=== PATIENT | male | born 1945 | race African-American/Black ===

== ENCOUNTER 2017-06-18 20:33 | Inpatient (IN) | payer MEDICARE, MEDICAID ==
[~2017-06-18] VITALS: Ht 175.3 cm; Wt 103.9 kg
[~2017-06-18 20:33] MED LIST: APIX5TAB PO; ASPI-1158 PO; ATOR40TA70 PO; AZIT500T5 PO; COR12 PO; DILT180C69 PO; Digoxin PO; Docusate Sodium PO; FURO80TA87 PO; LEVVL SUBCUT; PANT40TA4 PO; PULM50 HHN
[2017-06-18 21:20] LABS: BASOPHILS % 0.6 % (0.0-2.0); EOSINOPHILS % 2.1 % (0.0-5.0); HEMATOCRIT. 36.8 % (42.0-52.0); HEMOGLOBIN. 11.7 g/dL (14.0-18.0); LYMPHOCYTES % 19.1 % (20.0-50.0); MEAN CORPUSCULAR HEMOGLOBIN 25.7 pg (28.0-32.0); MEAN CORPUSCULAR VOLUME 81.1 fL (80.0-94.0); MEAN PLATELET VOLUME 9.2 fl (7.4-10.4); MONOCYTES % 7.2 % (2.0-8.0); PLATELET 186 x1000/uL (130-400); RED BLOOD CELL COUNT 4.54 mill/uL (4.7-6.1); RED CELL DISTRIBUTION WIDTH 15.5 % (11.6-14.6)
[2017-06-18 21:25] LABS: INR 1.1; PROTHROMBIN TIME 11.6 sec (9.4-11.6)
[2017-06-18 21:30] LABS: CHLORIDE 104 mEq/L (98-107)
[2017-06-18] MEDS ORDERED: ACETAMINOPHEN WITH CODEINE 300/30MG TABLET PO ONE (23:00)
[2017-06-18] MEDS ORDERED: NITROGLYCERIN 0.4MG/HR PATCH TOP ONE (23:30)
[2017-06-18] MEDS ORDERED: DILTIAZEM HCL 180MG CAPSULE CD 24HR PO ONE (23:30)
[2017-06-19] VITALS (7 sets, daily range): BP systolic 146–179; BP diastolic 71–124
[2017-06-19] MEDS ORDERED: LABETALOL HCL 20MG/4ML CARPUJECT IV PRN
[2017-06-19] MEDS ORDERED: LABETALOL 5MG/ML SYR 20 MG/4 ML SYRINGE IV PRN (00:15)
[2017-06-19] MEDS ORDERED: IPRATROPIUM/ALBUTEROL 0.5-3(2.5)MG/3ML NEB INH PRN (00:45)
[2017-06-19] MEDS ORDERED: MAGNESIUM/ALUMINUM HYDROXIDE/SIMETHICONE 30ML UDC PO PRN (00:45)
[2017-06-19] MEDS ORDERED: CLONIDINE 0.1MG TABLET PO PRN (00:45)
[2017-06-19] MEDS ORDERED: DOCUSATE SODIUM 100MG CAPSULE PO PRN (00:45)
[2017-06-19] MEDS ORDERED: ONDANSETRON HCL 4MG/2ML VIAL IV PRN (00:45)
[2017-06-19 01:22] LABS: CHLORIDE 103 mEq/L (98-107)
[2017-06-19 05:59] LABS: BASOPHILS % 0.9 % (0.0-2.0); EOSINOPHILS % 1.1 % (0.0-5.0); HEMATOCRIT. 37.5 % (42.0-52.0); HEMOGLOBIN. 12.3 g/dL (14.0-18.0); LYMPHOCYTES % 26.3 % (20.0-50.0); MEAN CORPUSCULAR HEMOGLOBIN 26.5 pg (28.0-32.0); MEAN CORPUSCULAR VOLUME 80.6 fL (80.0-94.0); MEAN PLATELET VOLUME 9.4 fl (7.4-10.4); MONOCYTES % 6.5 % (2.0-8.0); NEUTROPHILS % 65.2 % (40.0-76.0); PLATELET 179 x1000/uL (130-400); RED BLOOD CELL COUNT 4.65 mill/uL (4.7-6.1); RED CELL DISTRIBUTION WIDTH 16.1 % (11.6-14.6)
[2017-06-19 06:25] LABS: CREATINE KINASE MB FRACTION 3.3 ng/mL (0.5-3.6)
[2017-06-19] MEDS ORDERED: ONDANSETRON 4MG ODT PO PRN (09:00)
[2017-06-19] MEDS: FUROSEMIDE 40MG/4ML VIAL IV SCH ×2 (10:09→17:25)
[2017-06-19] MEDS ORDERED: ATOR20TA PO (10:27)
[2017-06-19] MEDS ORDERED: DILT60TA35 PO (10:28)
[2017-06-19] MEDS ORDERED: DILTIAZEM HCL 60MG TABLET PO SCH (10:30)
[2017-06-19] MEDS ORDERED: DEXTROSE 50% WATER 50ML SYRINGE IV PRN (10:45)
[2017-06-19] MEDS: PANTOPRAZOLE 40MG DR TABLET PO SCH (10:46)
[2017-06-19] MEDS ORDERED: LOSARTAN POTASSIUM 100 MG TABLET PO SCH (11:30)
[2017-06-19] MEDS: INSULIN GLARGINE UD 100 UNITS/ML SYR SUBCUT SCH ×2 (12:12→21:15)
[2017-06-19] MEDS: BLOOD SUGAR DIAGNOSTIC STRIP TEST SCH ×3 (12:12→21:07)
[2017-06-19] MEDS: INSULIN LISPRO 100 UNITS/ML SUBCUT SCH ×3 (12:16→21:15)
[2017-06-19] MEDS: NICOTINE 21MG PATCH TD SCH (13:54)
[2017-06-19 14:16] LABS: *AMPHETAMINES SCREEN URINE NEGATIVE (NEGATIVE); *BARBITURATES SCREEN URINE NEGATIVE (NEGATIVE); *BENZODIAZEPINES SCREEN URINE NEGATIVE (NEGATIVE); *COCAINE SCREEN URINE NEGATIVE (NEGATIVE); CANNABINOID URINE SCREEN NEGATIVE (NEGATIVE); METHADONE URINE SCREEN NEGATIVE (NEGATIVE); OPIATES URINE SCREEN PRESUMTIVE POSITIVE (NEGATIVE); PHENCYCLIDINE URINE SCREEN NEGATIVE (NEGATIVE)
[2017-06-19] MEDS: HYDROCODONE/ACETAMINOPHEN 5/325MG TABLET PO PRN ×2 (17:21→21:17)
[2017-06-19 17:22] LABS: CREATINE KINASE MB FRACTION 2.6 ng/mL (0.5-3.6)
[2017-06-19] MEDS: APIXABAN 5 MG TABLET PO SCH (17:25)
[2017-06-19] MEDS: DILTIAZEM HCL 60MG TABLET PO SCH ×2 (17:25→23:50)
[2017-06-19] MEDS: DIGOXIN 125MCG TABLET PO SCH (17:25)
[2017-06-19] MEDS ORDERED: DIGOXIN PO SCH (18:00)
[2017-06-19] MEDS: CARVEDILOL 25MG TABLET PO SCH (21:16)
[2017-06-19] MEDS: ATORVASTATIN CALCIUM 20MG TABLET PO SCH (21:16)
[2017-06-19] MEDS ORDERED: INSULIN DETEMIR 15 UNIT SUBCUT SCH (22:00)
[2017-06-20] VITALS (12 sets, daily range): BP systolic 109–160; BP diastolic 57–92
[2017-06-20] MEDS: BLOOD SUGAR DIAGNOSTIC STRIP TEST SCH ×4 (06:34→20:47)
[2017-06-20] MEDS: PANTOPRAZOLE 40MG DR TABLET PO SCH (06:41)
[2017-06-20] MEDS: FUROSEMIDE 40MG/4ML VIAL IV SCH ×2 (06:41→18:19)
[2017-06-20] MEDS: INSULIN LISPRO 100 UNITS/ML SUBCUT SCH ×4 (08:00→20:39)
[2017-06-20] MEDS: APIXABAN 5 MG TABLET PO SCH ×2 (09:00→18:20)
[2017-06-20] MEDS: NICOTINE 21MG PATCH TD SCH (09:00)
[2017-06-20] MEDS: DILTIAZEM HCL 60MG TABLET PO SCH ×3 (09:01→18:20)
[2017-06-20] MEDS: ASPIRIN 81MG EC TABLET PO SCH (09:01)
[2017-06-20] MEDS: CARVEDILOL 25MG TABLET PO SCH ×2 (09:01→20:20)
[2017-06-20] MEDS: LOSARTAN POTASSIUM 50 MG TABLET PO SCH (09:01)
[2017-06-20] MEDS: ACETAMINOPHEN 325MG TABLET PO PRN ×2 (09:02→18:19)
[2017-06-20] MEDS: INSULIN GLARGINE UD 100 UNITS/ML SYR SUBCUT SCH ×2 (10:11→21:22)
[2017-06-20] MEDS: DIGOXIN 125MCG TABLET PO SCH (18:20)
[2017-06-20] MEDS: ATORVASTATIN CALCIUM 20MG TABLET PO SCH (20:10)
[2017-06-21] VITALS (11 sets, daily range): BP systolic 125–164; BP diastolic 65–115
[2017-06-21] MEDS: HYDROCODONE/ACETAMINOPHEN 5/325MG TABLET PO PRN ×4 (00:14→19:26)
[2017-06-21 05:55] LABS: BASOPHILS % 0.4 % (0.0-2.0); EOSINOPHILS % 1.9 % (0.0-5.0); HEMATOCRIT. 36.3 % (42.0-52.0); HEMOGLOBIN. 11.7 g/dL (14.0-18.0); LYMPHOCYTES % 28.6 % (20.0-50.0); MEAN CORPUSCULAR VOLUME 80.6 fL (80.0-94.0); MEAN PLATELET VOLUME 9.2 fl (7.4-10.4); NEUTROPHILS % 61.1 % (40.0-76.0); PLATELET 167 x1000/uL (130-400); RED BLOOD CELL COUNT 4.51 mill/uL (4.7-6.1)
[2017-06-21] MEDS: DILTIAZEM HCL 60MG TABLET PO SCH ×4 (06:14→17:06)
[2017-06-21] MEDS: FUROSEMIDE 40MG/4ML VIAL IV SCH ×2 (06:26→17:06)
[2017-06-21] MEDS: INSULIN LISPRO 100 UNITS/ML SUBCUT SCH ×3 (08:00→17:07)
[2017-06-21 08:09] LABS: CHLORIDE 104 mEq/L (98-107)
[2017-06-21] MEDS: BLOOD SUGAR DIAGNOSTIC STRIP TEST SCH ×3 (08:09→17:07)
[2017-06-21] MEDS: NICOTINE 21MG PATCH TD SCH (08:15)
[2017-06-21] MEDS: APIXABAN 5 MG TABLET PO SCH ×2 (08:16→17:07)
[2017-06-21] MEDS: ASPIRIN 81MG EC TABLET PO SCH (08:16)
[2017-06-21] MEDS: LOSARTAN POTASSIUM 50 MG TABLET PO SCH (08:16)
[2017-06-21] MEDS: CARVEDILOL 25MG TABLET PO SCH (08:17)
[2017-06-21] MEDS: PANTOPRAZOLE 40MG DR TABLET PO SCH (08:19)
[2017-06-21] MEDS: INSULIN GLARGINE UD 100 UNITS/ML SYR SUBCUT SCH (10:30)
[2017-06-21] MEDS ORDERED: LOSA50TA3 PO (14:36)
[2017-06-21] MEDS ORDERED: DILT60TA35 PO (14:36)
[2017-06-21] MEDS: DIGOXIN 125MCG TABLET PO SCH (17:07)
[2017-06-22] MEDS ORDERED: FAMOTIDINE 20MG TABLET PO SCH (09:00)
== END 2017-06-21 19:15 | disposition home or self-care (01) | DRG 291 ==
LOC: ER 20:40 → EDBEDREQ 06-19 00:15 → EDBEDREQSVC 06-19 00:15 → EDBEDREQTM 06-19 00:15 → 5EST 06-19 07:22 → ENRESERV 06-19 07:22
PROVIDERS: ADMIT Internal Medicine; ATTEND Internal Medicine
PROC: 5A09357 Assistance with Respiratory Ventilation, Less than 24 Consecutive Hours, Continuous Positive Airway Pressure (ICD-10-PCS; principal; 2017-06-18)
PROC: 5A09357 Assistance with Respiratory Ventilation, Less than 24 Consecutive Hours, Continuous Positive Airway Pressure (ICD-10-PCS; 2017-06-19)
DX: I11.0 Hypertensive heart disease with heart failure (principal); E43 Unspecified severe protein-calorie malnutrition; I27.20 Pulmonary hypertension, unspecified; I42.0 Dilated cardiomyopathy; I48.91 Unspecified atrial fibrillation; Z99.81 Dependence on supplemental oxygen; D64.9 Anemia, unspecified; E11.9 Type 2 diabetes mellitus without complications; J44.1 Chronic obstructive pulmonary disease with (acute) exacerbation; I50.23 Acute on chronic systolic (congestive) heart failure; E66.9 Obesity, unspecified; E78.00 Pure hypercholesterolemia, unspecified; E78.5 Hyperlipidemia, unspecified; F17.210 Nicotine dependence, cigarettes, uncomplicated; K21.9 Gastro-esophageal reflux disease without esophagitis; Z79.01 Long term (current) use of anticoagulants; Z79.4 Long term (current) use of insulin; Z95.810 Presence of automatic (implantable) cardiac defibrillator; Z68.33 Body mass index [BMI] 33.0-33.9, adult; Z79.82 Long term (current) use of aspirin; Z79.899 Other long term (current) drug therapy; Z71.3 Dietary counseling and surveillance
CPT/HCPCS: 36415; 71045; 80048; 80053; 80061; 80305; 82550; 82553; 82962; 83735; 83880; 84443; 84484; 85025; 85610; 93005; 93970; 94660; 99291; J1815; J1940; J3490

== ENCOUNTER 2018-03-05 05:04 | Inpatient (IN) | payer MEDICARE, MEDICAID ==
[~2018-03-05] VITALS: Ht 175.3 cm; Wt 104.3 kg
[~2018-03-05 05:04] MED LIST changes: -ASPI-1158 PO; +ASPI-1159 PO; +ATOR20TA PO; -ATOR40TA70 PO; -AZIT500T5 PO; -COR12 PO; +COR25 PO; +DIGO-26 PO; -DILT180C69 PO; +DILT300C52 PO; +DILT60TA35 PO; +DOCU-150 PO; -Digoxin PO; -Docusate Sodium PO; +FURO-151 PO; -FURO80TA87 PO; +GABA-529 MT; +HYDR-4134 PO; +LOSA50TA3 PO; +METO5TAB69 PO; +PANT40SU PO; -PANT40TA4 PO; -PULM50 HHN; +TRAM50TA3 PO
[2018-03-05 07:11] LABS: BASOPHILS % 0.6 % (0.0-2.0); EOSINOPHILS % 1.5 % (0.0-5.0); HEMATOCRIT. 36.7 % (42.0-52.0); MEAN CORPUSCULAR HEMOGLOBIN 26.1 pg (28.0-32.0); MEAN CORPUSCULAR VOLUME 79.9 fL (80.0-94.0); MONOCYTES % 9.7 % (2.0-8.0); NEUTROPHILS % 65.2 % (40.0-76.0); PLATELET 160 x1000/uL (130-400); RED BLOOD CELL COUNT 4.59 mill/uL (4.7-6.1); RED CELL DISTRIBUTION WIDTH 14.3 % (11.6-14.6)
[2018-03-05 07:13] LABS: CLARITY URINE CLEAR (CLEAR); COLOR URINE YELLOW (YELLOW); KETONES URINE NEGATIVE (NEGATIVE); LEUKOCYTE ESTERASE URINE NEGATIVE (NEGATIVE); NITRITE URINE NEGATIVE (NEGATIVE); OCCULT BLOOD URINE NEGATIVE (NEGATIVE); PH URINE 6.5 (4.5-8.0); PROTEIN URINE NEGATIVE (NEGATIVE); SPECIFIC GRAVITY URINE 1.019 (1.005-1.030); UROBILINOGEN URINE 0.2 E.U./dL (0.2-1.0)
[2018-03-05 07:15] LABS: CHLORIDE 95 mEq/L (98-107)
[2018-03-05 07:18] LABS: ETHANOL BLOOD < 10 mg/dL
[2018-03-05] MEDS ORDERED: SODIUM CHLORIDE 0.9% 1,000 ML IV ONE (07:25)
[2018-03-05 07:28] LABS: *BARBITURATES SCREEN URINE NEGATIVE (NEGATIVE); *BENZODIAZEPINES SCREEN URINE NEGATIVE (NEGATIVE); *COCAINE SCREEN URINE NEGATIVE (NEGATIVE); METHADONE URINE SCREEN NEGATIVE (NEGATIVE)
[2018-03-05 07:29] LABS: *AMPHETAMINES SCREEN URINE NEGATIVE (NEGATIVE); CANNABINOID URINE SCREEN NEGATIVE (NEGATIVE); OPIATES URINE SCREEN NEGATIVE (NEGATIVE); PHENCYCLIDINE URINE SCREEN NEGATIVE (NEGATIVE)
[2018-03-05 07:32] LABS: PARTIAL THROMBOPLASTIN TIME 25.4 sec (23.4-31.0); PROTHROMBIN TIME 10.1 sec (9.1-11.1)
[2018-03-05] MEDS ORDERED: INSULIN REGULAR (HUMULIN R) 300UNITS/3ML IV ONE (07:45)
[2018-03-05 14:54] VITALS: BP 155/90
[2018-03-05] MEDS ORDERED: CARV12.545 MT (15:42)
[2018-03-05] MEDS ORDERED: DILT360C28 MT (15:45)
[2018-03-05] MEDS ORDERED: FURO40TA5 PO (15:51)
[2018-03-05] MEDS ORDERED: INFLUENZA VIRUS VACCINE(AFLURIA) 0.5ML SYR IM ONE (16:15)
[2018-03-05] MEDS: CARVEDILOL 25MG TABLET PO SCH ×2 (16:40→21:23)
[2018-03-05] MEDS: LOSARTAN POTASSIUM 50 MG TABLET PO SCH ×2 (16:40→21:15)
[2018-03-05] MEDS: ASPIRIN 81MG EC TABLET PO SCH (16:40)
[2018-03-05] MEDS ORDERED: GUAIFENESIN 200MG/10ML SUGAR FREE UDC PO PRN (17:00)
[2018-03-05] MEDS ORDERED: MAGNESIUM/ALUMINUM HYDROXIDE/SIMETHICONE 30ML UDC PO PRN (17:00)
[2018-03-05] MEDS ORDERED: DOCUSATE SODIUM 100MG CAPSULE PO PRN (17:00)
[2018-03-05] MEDS ORDERED: CLONIDINE 0.1MG TABLET PO PRN (17:00)
[2018-03-05] MEDS ORDERED: HYDROCODONE/ACETAMINOPHEN 5/325MG TABLET PO PRN (17:00)
[2018-03-05] MEDS ORDERED: IPRATROPIUM/ALBUTEROL 0.5-3(2.5)MG/3ML NEB INH PRN (17:00)
[2018-03-05] MEDS ORDERED: ACETAMINOPHEN 325MG TABLET PO PRN (17:00)
[2018-03-05] MEDS ORDERED: ONDANSETRON HCL 4MG/2ML INJ IV PRN (17:00)
[2018-03-05] MEDS: DILTIAZEM HCL 60MG TABLET PO SCH (17:54)
[2018-03-05] MEDS: ENOXAPARIN 100MG/ML SYR SUBCUT SCH (17:56)
[2018-03-05] MEDS: FUROSEMIDE 40MG/4ML VIAL IVP SCH (19:09)
[2018-03-05] MEDS ORDERED: DEXTROSE 50% WATER 50ML SYRINGE IV PRN (19:30)
[2018-03-05] MEDS: BLOOD SUGAR DIAGNOSTIC STRIP TEST SCH (20:57)
[2018-03-05] MEDS ORDERED: CARVEDILOL 25MG TABLET PO SCH (21:00)
[2018-03-05] MEDS: ATORVASTATIN CALCIUM 20MG TABLET PO SCH (21:13)
[2018-03-05] MEDS: HYDRALAZINE HCL 25MG TABLET PO SCH (21:15)
[2018-03-05] MEDS ORDERED: INSULIN GLARGINE UD 100 UNITS/ML SYR SUBCUT SCH (22:00)
[2018-03-05] MEDS ORDERED: DILTIAZEM HCL 60MG TABLET PO SCH (22:00)
[2018-03-05] MEDS ORDERED: INSULIN LISPRO 100 UNITS/ML SUBCUT NR (22:15)
[2018-03-05] MEDS: INSULIN LISPRO 100 UNITS/ML SUBCUT SCH (22:49)
[2018-03-05] MEDS: GABAPENTIN 100MG CAPSULE PO SCH (22:55)
[2018-03-06] VITALS: BP 131/75
[2018-03-06] MEDS: DILTIAZEM HCL 60MG TABLET PO SCH ×4 (02:39→23:55)
[2018-03-06 04:00] VITALS: BP 105/66
[2018-03-06] MEDS: ENOXAPARIN 100MG/ML SYR SUBCUT SCH ×2 (06:34→15:18)
[2018-03-06] MEDS: PANTOPRAZOLE 40MG DR TABLET PO SCH (06:35)
[2018-03-06] MEDS: GABAPENTIN 100MG CAPSULE PO SCH ×3 (06:35→20:16)
[2018-03-06] MEDS: HYDRALAZINE HCL 25MG TABLET PO SCH ×3 (06:35→20:16)
[2018-03-06 06:44] LABS: BASOPHILS % 0.5 % (0.0-2.0); EOSINOPHILS % 1.7 % (0.0-5.0); LYMPHOCYTES % 28.7 % (20.0-50.0); MEAN CORPUSCULAR HEMOGLOBIN 26.2 pg (28.0-32.0); MEAN CORPUSCULAR VOLUME 78.7 fL (80.0-94.0); MEAN PLATELET VOLUME 9.8 fl (7.4-10.4); MONOCYTES % 9.3 % (2.0-8.0); NEUTROPHILS % 59.8 % (40.0-76.0); PLATELET 187 x1000/uL (130-400); RED BLOOD CELL COUNT 4.57 mill/uL (4.7-6.1); RED CELL DISTRIBUTION WIDTH 14.3 % (11.6-14.6)
[2018-03-06 06:58] LABS: CHLORIDE 100 mEq/L (98-107)
[2018-03-06 07:10] LABS: CREATINE KINASE MB FRACTION 2.5 ng/mL (0.5-3.6)
[2018-03-06] MEDS: BLOOD SUGAR DIAGNOSTIC STRIP TEST SCH ×4 (07:10→20:22)
[2018-03-06 07:13] LABS: LDL CHOLESTEROL 101 mg/dL (5-100)
[2018-03-06 07:14] LABS: CREATINE KINASE 71 IU/L (39-308); HDL CHOLESTEROL 28 mg/dL (40-59)
[2018-03-06] MEDS: INSULIN LISPRO 100 UNITS/ML SUBCUT SCH ×6 (07:40→20:24)
[2018-03-06 08:00] VITALS: BP 107/62
[2018-03-06] MEDS ORDERED: POTASSIUM CHLORIDE 20MEQ TABLET SR PO SCH (08:15)
[2018-03-06] MEDS ORDERED: ASPIRIN 81MG EC TABLET PO SCH (09:00)
[2018-03-06] MEDS ORDERED: ASPIRIN 81MG TABLET PO SCH (09:00)
[2018-03-06] MEDS ORDERED: APIXABAN 5 MG TABLET PO SCH (09:00)
[2018-03-06] MEDS: CARVEDILOL 25MG TABLET PO SCH ×2 (09:31→20:16)
[2018-03-06] MEDS: ASPIRIN 81MG EC TABLET PO SCH (09:31)
[2018-03-06] MEDS: FUROSEMIDE 40MG/4ML VIAL IVP SCH (09:31)
[2018-03-06] MEDS: LOSARTAN POTASSIUM 50 MG TABLET PO SCH ×2 (09:31→20:16)
[2018-03-06] MEDS: GLIPIZIDE 5MG TABLET PO SCH (09:31)
[2018-03-06] MEDS: INSULIN GLARGINE UD 100 UNITS/ML SYR SUBCUT SCH ×2 (10:40→21:18)
[2018-03-06 12:00] VITALS: BP 131/68
[2018-03-06 16:00] VITALS: BP 101/59
[2018-03-06] MEDS: LINAGLIPTIN 5MG TABLET PO SCH (17:10)
[2018-03-06 20:00] VITALS: BP 120/82
[2018-03-06] MEDS: ATORVASTATIN CALCIUM 20MG TABLET PO SCH (20:16)
[2018-03-07] VITALS (8 sets, daily range): BP systolic 97–121; BP diastolic 53–71
[2018-03-07] MEDS: BLOOD SUGAR DIAGNOSTIC STRIP TEST SCH ×4 (06:09→21:47)
[2018-03-07] MEDS: ENOXAPARIN 100MG/ML SYR SUBCUT SCH ×2 (06:14→15:42)
[2018-03-07] MEDS: HYDRALAZINE HCL 25MG TABLET PO SCH ×3 (06:14→21:47)
[2018-03-07] MEDS: GABAPENTIN 100MG CAPSULE PO SCH ×3 (06:14→21:47)
[2018-03-07] MEDS: GLIPIZIDE 5MG TABLET PO SCH (06:14)
[2018-03-07] MEDS: PANTOPRAZOLE 40MG DR TABLET PO SCH (06:14)
[2018-03-07] MEDS: DILTIAZEM HCL 60MG TABLET PO SCH ×3 (06:14→17:02)
[2018-03-07] MEDS: INSULIN LISPRO 100 UNITS/ML SUBCUT SCH ×7 (06:17→21:00)
[2018-03-07 08:17] LABS: BASOPHILS % 0.4 % (0.0-2.0); EOSINOPHILS % 1.6 % (0.0-5.0); HEMATOCRIT. 34.8 % (42.0-52.0); HEMOGLOBIN. 11.5 g/dL (14.0-18.0); LYMPHOCYTES % 27.7 % (20.0-50.0); MEAN CORPUSCULAR VOLUME 78.5 fL (80.0-94.0); MEAN PLATELET VOLUME 10.1 fl (7.4-10.4); MONOCYTES % 7.8 % (2.0-8.0); NEUTROPHILS % 62.5 % (40.0-76.0); PLATELET 167 x1000/uL (130-400); RED BLOOD CELL COUNT 4.44 mill/uL (4.7-6.1)
[2018-03-07] MEDS: ASPIRIN 81MG EC TABLET PO SCH (08:41)
[2018-03-07] MEDS: LINAGLIPTIN 5MG TABLET PO SCH (08:41)
[2018-03-07] MEDS: FUROSEMIDE 40MG/4ML VIAL IVP SCH (08:42)
[2018-03-07] MEDS: CARVEDILOL 25MG TABLET PO SCH ×2 (08:42→21:00)
[2018-03-07] MEDS: LOSARTAN POTASSIUM 50 MG TABLET PO SCH ×2 (08:43→21:49)
[2018-03-07] MEDS: INSULIN GLARGINE UD 100 UNITS/ML SYR SUBCUT SCH (09:45)
[2018-03-07] MEDS ORDERED: POTASSIUM CHLORIDE 20MEQ TABLET SR PO SCH (10:30)
[2018-03-07] MEDS ORDERED: INSULIN LISPRO 100 UNITS/ML SUBCUT NR (15:30)
[2018-03-07] MEDS ORDERED: GLIPIZIDE 5MG TABLET PO SCH (17:10)
[2018-03-07] MEDS: ATORVASTATIN CALCIUM 20MG TABLET PO SCH (21:47)
[2018-03-07] MEDS ORDERED: INSULIN GLARGINE UD 100 UNITS/ML SYR SUBCUT SCH (22:00)
[2018-03-08] MEDS ORDERED: FAMOTIDINE 20MG TABLET PO SCH (09:00)
== END 2018-03-07 22:05 | disposition home or self-care (01) | DRG 291 ==
LOC: ER 05:04 → 8WST 07:49 → ENRESERV 11:16 → 8WST 15:14
PROVIDERS: ADMIT Internal Medicine; ATTEND Internal Medicine
PROC: 4B02XTZ Measurement of Cardiac Defibrillator, External Approach (ICD-10-PCS; principal; 2018-03-06)
DX: I13.0 Hypertensive heart and chronic kidney disease with heart failure and stage 1 through stage 4 chronic kidney disease, or unspecified chronic kidney disease (principal); I50.43 Acute on chronic combined systolic (congestive) and diastolic (congestive) heart failure; E43 Unspecified severe protein-calorie malnutrition; N17.9 Acute kidney failure, unspecified; I31.3 Pericardial effusion (noninflammatory); I48.2 Chronic atrial fibrillation; N18.9 Chronic kidney disease, unspecified; K21.9 Gastro-esophageal reflux disease without esophagitis; E11.22 Type 2 diabetes mellitus with diabetic chronic kidney disease; E11.42 Type 2 diabetes mellitus with diabetic polyneuropathy; E11.65 Type 2 diabetes mellitus with hyperglycemia; D64.9 Anemia, unspecified; E78.00 Pure hypercholesterolemia, unspecified; I25.5 Ischemic cardiomyopathy; E78.5 Hyperlipidemia, unspecified; F17.210 Nicotine dependence, cigarettes, uncomplicated; I50.9 Heart failure, unspecified; J44.9 Chronic obstructive pulmonary disease, unspecified; M19.90 Unspecified osteoarthritis, unspecified site; I25.10 Atherosclerotic heart disease of native coronary artery without angina pectoris; I25.2 Old myocardial infarction; Z68.34 Body mass index [BMI] 34.0-34.9, adult; Z79.899 Other long term (current) drug therapy; I48.91 Unspecified atrial fibrillation
CPT/HCPCS: 36415; 71045; 76770; 80048; 80061; 80305; 82550; 82553; 82962; 83735; 83880; 84443; 84484; 85379; 93005; 93306; 93970; 96361; 96374; 99285; G0482; J1650; J1815; J1940; J7030

== ENCOUNTER 2018-03-10 11:12 | Emergency (ER) | payer MEDICARE, MEDICAID ==
[~2018-03-10] VITALS: Ht 177.8 cm; Wt 110.0 kg
[~2018-03-10 11:12] MED LIST changes: -DILT300C52 PO; +DILT360C28 MT; +FURO40TA5 PO
[2018-03-10] MEDS ORDERED: DILTIAZEM HCL 5MG/ML 5ML VIAL IV ONE (11:45)
[2018-03-10 12:08] LABS: BASOPHILS % 0.9 % (0.0-2.0); EOSINOPHILS % 1.1 % (0.0-5.0); HEMATOCRIT. 37.5 % (42.0-52.0); HEMOGLOBIN. 12.4 g/dL (14.0-18.0); LYMPHOCYTES % 22.9 % (20.0-50.0); MEAN CORPUSCULAR HEMOGLOBIN 26.3 pg (28.0-32.0); MEAN CORPUSCULAR VOLUME 79.4 fL (80.0-94.0); MEAN PLATELET VOLUME 10.2 fl (7.4-10.4); MONOCYTES % 7.5 % (2.0-8.0); NEUTROPHILS % 67.6 % (40.0-76.0); PLATELET 178 x1000/uL (130-400); RED BLOOD CELL COUNT 4.72 mill/uL (4.7-6.1); RED CELL DISTRIBUTION WIDTH 14.3 % (11.6-14.6)
[2018-03-10 12:15] LABS: CHLORIDE 100 mEq/L (98-107)
[2018-03-10 12:38] LABS: DIGOXIN 1.3 ng/mL (0.9-2.0)
[2018-03-10 14:11] VITALS: BP 163/91
== END 2018-03-10 14:12 | disposition home or self-care (01) ==
LOC: ER 11:12
DX: R20.2 Paresthesia of skin (principal); F41.9 Anxiety disorder, unspecified; I11.0 Hypertensive heart disease with heart failure; I50.9 Heart failure, unspecified; I25.2 Old myocardial infarction; E78.00 Pure hypercholesterolemia, unspecified; I48.91 Unspecified atrial fibrillation; E11.9 Type 2 diabetes mellitus without complications; F17.200 Nicotine dependence, unspecified, uncomplicated; Z79.01 Long term (current) use of anticoagulants; Z95.810 Presence of automatic (implantable) cardiac defibrillator; Z79.4 Long term (current) use of insulin
CPT/HCPCS: 36415; 71045; 80053; 80162; 83880; 84484; 85025; 93005; 96374; 99284; J3490

== ENCOUNTER 2018-03-23 16:33 | Inpatient (IN) | payer MEDICARE, MEDICAID ==
[~2018-03-23] VITALS: Ht 175.3 cm; Wt 108.9 kg
[2018-03-23] MEDS ORDERED: SODIUM CHLORIDE 0.9% 500 ML IV ONE (16:45)
[2018-03-23] MEDS ORDERED: ASPIRIN 81MG TABLET PO ONE (16:45)
[2018-03-23 17:09] LABS: EOSINOPHILS % 1.9 % (0.0-5.0); HEMATOCRIT. 35.1 % (42.0-52.0); HEMOGLOBIN. 11.6 g/dL (14.0-18.0); LYMPHOCYTES % 24.8 % (20.0-50.0); MEAN CORPUSCULAR HEMOGLOBIN 26.2 pg (28.0-32.0); MEAN CORPUSCULAR VOLUME 79.3 fL (80.0-94.0); MEAN PLATELET VOLUME 8.9 fl (7.4-10.4); MONOCYTES % 8.3 % (2.0-8.0); PLATELET 156 x1000/uL (130-400); RED BLOOD CELL COUNT 4.42 mill/uL (4.7-6.1); RED CELL DISTRIBUTION WIDTH 14.7 % (11.6-14.6)
[2018-03-23 17:13] LABS: CHLORIDE 101 mEq/L (98-107)
[2018-03-23] MEDS ORDERED: CARVEDILOL 25MG TABLET PO ONE (22:30)
[2018-03-23 23:20] VITALS: BP 171/113
[2018-03-24] VITALS (7 sets, daily range): BP systolic 130–171; BP diastolic 61–113
[2018-03-24] MEDS ORDERED: DEXTROSE 50% WATER 50ML SYRINGE IV PRN (00:30)
[2018-03-24] MEDS ORDERED: POTASSIUM CHLORIDE 20MEQ TABLET SR PO NR (01:00)
[2018-03-24] MEDS ORDERED: MEDICATION NOT ON FORMULARY EA (Hydralazine Hcl 25 MG) PO SCH (06:00)
[2018-03-24] MEDS: INSULIN LISPRO 100 UNITS/ML SUBCUT SCH ×4 (06:16→21:31)
[2018-03-24] MEDS: BLOOD SUGAR DIAGNOSTIC STRIP TEST SCH ×4 (06:16→21:32)
[2018-03-24] MEDS: HYDRALAZINE HCL 25MG TABLET PO SCH ×3 (06:16→21:20)
[2018-03-24 06:35] LABS: BASOPHILS % 0.2 % (0.0-2.0); HEMATOCRIT. 34.4 % (42.0-52.0); HEMOGLOBIN. 11.4 g/dL (14.0-18.0); LYMPHOCYTES % 26.8 % (20.0-50.0); MEAN CORPUSCULAR HEMOGLOBIN 26.4 pg (28.0-32.0); MEAN CORPUSCULAR VOLUME 79.5 fL (80.0-94.0); MEAN PLATELET VOLUME 9.4 fl (7.4-10.4); MONOCYTES % 8.5 % (2.0-8.0); NEUTROPHILS % 62.5 % (40.0-76.0); PLATELET 144 x1000/uL (130-400); RED BLOOD CELL COUNT 4.32 mill/uL (4.7-6.1); RED CELL DISTRIBUTION WIDTH 14.8 % (11.6-14.6)
[2018-03-24 06:47] LABS: CHLORIDE 102 mEq/L (98-107)
[2018-03-24] MEDS ORDERED: MEDICATION NOT ON FORMULARY EA (Apixaban (Eliquis) 5 MG) PO SCH (09:00)
[2018-03-24] MEDS ORDERED: MEDICATION NOT ON FORMULARY EA (Gabapentin 1 CAP) MT SCH (09:00)
[2018-03-24] MEDS ORDERED: LOSARTAN POTASSIUM 50 MG PO SCH (09:00)
[2018-03-24] MEDS: FUROSEMIDE 40MG/4ML VIAL IVP SCH ×2 (09:21→21:19)
[2018-03-24] MEDS: LOSARTAN POTASSIUM 50 MG TABLET PO SCH ×2 (09:21→21:20)
[2018-03-24] MEDS: GABAPENTIN 100MG CAPSULE PO SCH ×3 (09:21→17:23)
[2018-03-24] MEDS: APIXABAN 5 MG TABLET PO SCH ×2 (09:22→17:23)
[2018-03-24] MEDS: CARVEDILOL 25MG TABLET PO SCH ×2 (09:22→21:20)
[2018-03-24] MEDS: ASPIRIN 81MG TABLET PO SCH (09:22)
[2018-03-24] MEDS ORDERED: POTASSIUM CHLORIDE 20MEQ TABLET SR PO SCH (09:30)
[2018-03-24] MEDS: INSULIN GLARGINE UD 100 UNITS/ML SYR SUBCUT SCH ×2 (10:52→21:31)
[2018-03-24] MEDS ORDERED: MAGNESIUM 2 G PREMIX 50 ML IV SCH (11:00)
[2018-03-24] MEDS: DIGOXIN 125MCG TABLET PO SCH (17:23)
[2018-03-24 19:56] LABS: CLARITY URINE CLEAR (CLEAR); COLOR URINE YELLOW (YELLOW); KETONES URINE NEGATIVE (NEGATIVE); LEUKOCYTE ESTERASE URINE NEGATIVE (NEGATIVE); NITRITE URINE NEGATIVE (NEGATIVE); OCCULT BLOOD URINE NEGATIVE (NEGATIVE); PH URINE 6.5 (4.5-8.0); PROTEIN URINE TRACE (NEGATIVE); SPECIFIC GRAVITY URINE 1.012 (1.005-1.030)
[2018-03-24 20:18] LABS: *BENZODIAZEPINES SCREEN URINE NEGATIVE (NEGATIVE)
[2018-03-24 20:19] LABS: *AMPHETAMINES SCREEN URINE NEGATIVE (NEGATIVE); *COCAINE SCREEN URINE NEGATIVE (NEGATIVE); CANNABINOID URINE SCREEN NEGATIVE (NEGATIVE); METHADONE URINE SCREEN NEGATIVE (NEGATIVE); OPIATES URINE SCREEN NEGATIVE (NEGATIVE)
[2018-03-24 20:20] LABS: *BARBITURATES SCREEN URINE NEGATIVE (NEGATIVE); PHENCYCLIDINE URINE SCREEN NEGATIVE (NEGATIVE)
[2018-03-24] MEDS: ATORVASTATIN CALCIUM 20MG TABLET PO SCH (21:19)
[2018-03-24] MEDS ORDERED: INSULIN GLARGINE UD 100 UNITS/ML SYR SUBCUT SCH ×2 (22:00)
[2018-03-25] VITALS: BP 126/72
[2018-03-25 04:00] VITALS: BP 139/50
[2018-03-25] MEDS: BLOOD SUGAR DIAGNOSTIC STRIP TEST SCH ×4 (06:32→20:14)
[2018-03-25] MEDS: GLIPIZIDE 10MG TABLET PO SCH (06:38)
[2018-03-25] MEDS: HYDRALAZINE HCL 25MG TABLET PO SCH ×3 (06:39→21:49)
[2018-03-25] MEDS: INSULIN LISPRO 100 UNITS/ML SUBCUT SCH ×6 (06:41→20:14)
[2018-03-25 06:48] LABS: BASOPHILS % 0.3 % (0.0-2.0); EOSINOPHILS % 2.4 % (0.0-5.0); HEMATOCRIT. 35.4 % (42.0-52.0); HEMOGLOBIN. 11.7 g/dL (14.0-18.0); LYMPHOCYTES % 28.1 % (20.0-50.0); MEAN CORPUSCULAR HEMOGLOBIN 26.4 pg (28.0-32.0); MEAN CORPUSCULAR VOLUME 80.1 fL (80.0-94.0); MEAN PLATELET VOLUME 9.4 fl (7.4-10.4); MONOCYTES % 9.5 % (2.0-8.0); NEUTROPHILS % 59.7 % (40.0-76.0); PLATELET 152 x1000/uL (130-400); RED BLOOD CELL COUNT 4.42 mill/uL (4.7-6.1); RED CELL DISTRIBUTION WIDTH 14.9 % (11.6-14.6)
[2018-03-25 07:07] LABS: CHLORIDE 101 mEq/L (98-107)
[2018-03-25 07:40] LABS: PHOSPHORUS 3.1 mg/dL (2.5-4.9)
[2018-03-25 08:30] VITALS: BP 144/76
[2018-03-25] MEDS: FUROSEMIDE 40MG/4ML VIAL IVP SCH ×2 (08:39→20:14)
[2018-03-25] MEDS: ASPIRIN 81MG TABLET PO SCH (08:39)
[2018-03-25] MEDS: GABAPENTIN 100MG CAPSULE PO SCH ×3 (08:39→17:17)
[2018-03-25] MEDS: CARVEDILOL 25MG TABLET PO SCH ×2 (08:40→20:14)
[2018-03-25] MEDS: APIXABAN 5 MG TABLET PO SCH ×2 (08:40→17:17)
[2018-03-25] MEDS: LOSARTAN POTASSIUM 50 MG TABLET PO SCH ×2 (08:40→20:14)
[2018-03-25] MEDS ORDERED: KCL 20MEQ/100ML PREMIX 100 ML IV SCH (10:00)
[2018-03-25] MEDS: INSULIN GLARGINE UD 100 UNITS/ML SYR SUBCUT SCH ×2 (10:02→21:56)
[2018-03-25 12:00] VITALS: BP 143/84
[2018-03-25 16:00] VITALS: BP 134/61
[2018-03-25] MEDS: DIGOXIN 125MCG TABLET PO SCH (17:17)
[2018-03-25 20:00] VITALS: BP 138/73
[2018-03-25] MEDS: ATORVASTATIN CALCIUM 20MG TABLET PO SCH (20:14)
[2018-03-26] VITALS: BP 129/62
[2018-03-26 04:00] VITALS: BP 136/64
[2018-03-26] MEDS: HYDRALAZINE HCL 25MG TABLET PO SCH ×3 (06:28→21:44)
[2018-03-26] MEDS: BLOOD SUGAR DIAGNOSTIC STRIP TEST SCH ×4 (06:28→21:00)
[2018-03-26] MEDS: GLIPIZIDE 10MG TABLET PO SCH (06:28)
[2018-03-26] MEDS: INSULIN LISPRO 100 UNITS/ML SUBCUT SCH ×7 (06:31→22:08)
[2018-03-26 06:35] LABS: BASOPHILS % 0.3 % (0.0-2.0); EOSINOPHILS % 1.5 % (0.0-5.0); HEMATOCRIT. 38.3 % (42.0-52.0); HEMOGLOBIN. 12.5 g/dL (14.0-18.0); LYMPHOCYTES % 26.9 % (20.0-50.0); MEAN CORPUSCULAR HEMOGLOBIN 26.3 pg (28.0-32.0); MEAN CORPUSCULAR VOLUME 80.3 fL (80.0-94.0); MEAN PLATELET VOLUME 9.6 fl (7.4-10.4); MONOCYTES % 8.7 % (2.0-8.0); NEUTROPHILS % 62.6 % (40.0-76.0); PLATELET 182 x1000/uL (130-400); RED BLOOD CELL COUNT 4.76 mill/uL (4.7-6.1); RED CELL DISTRIBUTION WIDTH 14.7 % (11.6-14.6)
[2018-03-26 08:00] VITALS: BP 111/75
[2018-03-26] MEDS: LOSARTAN POTASSIUM 50 MG TABLET PO SCH ×2 (08:36→21:51)
[2018-03-26] MEDS: GABAPENTIN 100MG CAPSULE PO SCH ×3 (08:36→17:45)
[2018-03-26] MEDS: ASPIRIN 81MG TABLET PO SCH (08:36)
[2018-03-26] MEDS: FUROSEMIDE 40MG/4ML VIAL IVP SCH ×2 (08:38→21:45)
[2018-03-26] MEDS: CARVEDILOL 12.5MG TABLET PO SCH ×2 (08:44→21:45)
[2018-03-26] MEDS: APIXABAN 5 MG TABLET PO SCH ×2 (08:44→17:44)
[2018-03-26] MEDS: SOTALOL HCL 80MG TABLET PO SCH ×2 (08:44→21:45)
[2018-03-26] MEDS: INSULIN GLARGINE UD 100 UNITS/ML SYR SUBCUT SCH ×2 (10:07→21:53)
[2018-03-26 11:58] VITALS: BP 98/65
[2018-03-26 16:00] VITALS: BP 107/66
[2018-03-26 17:18] LABS: PHOSPHORUS 3.3 mg/dL (2.5-4.9)
[2018-03-26] MEDS: DIGOXIN 125MCG TABLET PO SCH (17:44)
[2018-03-26 20:04] VITALS: BP 118/58
[2018-03-26] MEDS: ATORVASTATIN CALCIUM 20MG TABLET PO SCH (21:45)
[2018-03-27] VITALS: BP 148/60
[2018-03-27 04:00] VITALS: BP 107/63
[2018-03-27] MEDS: HYDRALAZINE HCL 25MG TABLET PO SCH ×2 (05:22→14:00)
[2018-03-27] MEDS: BLOOD SUGAR DIAGNOSTIC STRIP TEST SCH ×3 (05:57→17:10)
[2018-03-27] MEDS: INSULIN LISPRO 100 UNITS/ML SUBCUT SCH ×6 (06:01→18:32)
[2018-03-27] MEDS: GLIPIZIDE 10MG TABLET PO SCH (06:50)
[2018-03-27 07:30] LABS: BASOPHILS % 0.4 % (0.0-2.0); EOSINOPHILS % 1.9 % (0.0-5.0); HEMATOCRIT. 37.5 % (42.0-52.0); HEMOGLOBIN. 12.5 g/dL (14.0-18.0); LYMPHOCYTES % 27.6 % (20.0-50.0); MEAN CORPUSCULAR HEMOGLOBIN 26.6 pg (28.0-32.0); MEAN CORPUSCULAR VOLUME 79.7 fL (80.0-94.0); MEAN PLATELET VOLUME 9.6 fl (7.4-10.4); MONOCYTES % 9.9 % (2.0-8.0); NEUTROPHILS % 60.2 % (40.0-76.0); PLATELET 160 x1000/uL (130-400); RED CELL DISTRIBUTION WIDTH 14.9 % (11.6-14.6)
[2018-03-27 08:00] VITALS: BP 105/67
[2018-03-27] MEDS ORDERED: POTASSIUM CHLORIDE 20MEQ TABLET SR PO SCH (08:00)
[2018-03-27] MEDS ORDERED: FUROSEMIDE 40MG/4ML VIAL IVP SCH (09:00)
[2018-03-27] MEDS: SOTALOL HCL 80MG TABLET PO SCH (09:00)
[2018-03-27] MEDS: APIXABAN 5 MG TABLET PO SCH ×2 (10:39→18:40)
[2018-03-27] MEDS: LOSARTAN POTASSIUM 50 MG TABLET PO SCH (10:40)
[2018-03-27] MEDS: GABAPENTIN 100MG CAPSULE PO SCH ×3 (10:41→18:58)
[2018-03-27] MEDS: ASPIRIN 81MG TABLET PO SCH (10:46)
[2018-03-27] MEDS: CARVEDILOL 12.5MG TABLET PO SCH (10:47)
[2018-03-27] MEDS: INSULIN GLARGINE UD 100 UNITS/ML SYR SUBCUT SCH (10:48)
[2018-03-27 12:00] VITALS: BP 121/68
[2018-03-27 15:10] LABS: PHOSPHORUS 3.3 mg/dL (2.5-4.9)
[2018-03-27 16:00] VITALS: BP 118/74
[2018-03-27] MEDS: DIGOXIN 125MCG TABLET PO SCH (18:58)
[2018-03-27 20:00] VITALS: BP 117/71
[2018-03-27] MEDS ORDERED: SOTALOL HCL 120MG TABLET PO SCH (21:00)
== END 2018-03-27 20:15 | disposition home or self-care (01) | DRG 291 ==
LOC: ER 16:33 → 8WST 19:39 → EDBEDREQTM 19:42 → EDBEDREQ 19:42 → ENRESERV 22:18 → 8WST 23:46
PROVIDERS: ADMIT Internal Medicine; ATTEND Internal Medicine
PROC: 4B02XTZ Measurement of Cardiac Defibrillator, External Approach (ICD-10-PCS; principal; 2018-03-24)
DX: I13.0 Hypertensive heart and chronic kidney disease with heart failure and stage 1 through stage 4 chronic kidney disease, or unspecified chronic kidney disease (principal); I50.31 Acute diastolic (congestive) heart failure; E43 Unspecified severe protein-calorie malnutrition; I48.1 Persistent atrial fibrillation; N17.9 Acute kidney failure, unspecified; I50.22 Chronic systolic (congestive) heart failure; I48.0 Paroxysmal atrial fibrillation; I49.3 Ventricular premature depolarization; I25.10 Atherosclerotic heart disease of native coronary artery without angina pectoris; D64.9 Anemia, unspecified; E11.22 Type 2 diabetes mellitus with diabetic chronic kidney disease; E66.9 Obesity, unspecified; E78.00 Pure hypercholesterolemia, unspecified; E78.5 Hyperlipidemia, unspecified; E83.42 Hypomagnesemia; E87.5 Hyperkalemia; E87.6 Hypokalemia; F17.290 Nicotine dependence, other tobacco product, uncomplicated; I25.5 Ischemic cardiomyopathy; J44.9 Chronic obstructive pulmonary disease, unspecified; N18.9 Chronic kidney disease, unspecified; Z79.899 Other long term (current) drug therapy; Z91.19 Patient's noncompliance with other medical treatment and regimen; Z79.01 Long term (current) use of anticoagulants; Z95.810 Presence of automatic (implantable) cardiac defibrillator; Z68.35 Body mass index [BMI] 35.0-35.9, adult; I25.2 Old myocardial infarction; Z79.4 Long term (current) use of insulin; Z99.81 Dependence on supplemental oxygen
CPT/HCPCS: 36415; 71045; 80048; 80305; 82962; 83036; 83735; 83880; 84100; 84132; 84484; 93005; 96360; 99285; J1815; J1940; J3475; J3480; J7040; J7050

== ENCOUNTER 2018-03-30 12:10 | Emergency (ER) | payer MEDICARE, MEDICAID ==
[~2018-03-30] VITALS: Ht 177.8 cm; Wt 107.0 kg
[~2018-03-30 12:10] MED LIST changes: -COR25 PO; -DILT360C28 MT; -DILT60TA35 PO; -FURO-151 PO; -FURO40TA5 PO; -LOSA50TA3 PO; -METO5TAB69 PO
[2018-03-30] MEDS ORDERED: ASPIRIN 81MG TABLET PO ONE (13:00)
[2018-03-30 14:40] LABS: BASOPHILS % 0.5 % (0.0-2.0); HEMATOCRIT. 37.3 % (42.0-52.0); HEMOGLOBIN. 12.2 g/dL (14.0-18.0); LYMPHOCYTES % 25.4 % (20.0-50.0); MEAN CORPUSCULAR HEMOGLOBIN 26.6 pg (28.0-32.0); MEAN CORPUSCULAR VOLUME 81.5 fL (80.0-94.0); MEAN PLATELET VOLUME 9.9 fl (7.4-10.4); MONOCYTES % 9.2 % (2.0-8.0); NEUTROPHILS % 63.9 % (40.0-76.0); PLATELET 169 x1000/uL (130-400); RED BLOOD CELL COUNT 4.58 mill/uL (4.7-6.1); RED CELL DISTRIBUTION WIDTH 15.1 % (11.6-14.6)
[2018-03-30 14:50] LABS: CHLORIDE 102 mEq/L (98-107)
[2018-03-30] MEDS ORDERED: LABETALOL HCL 20MG/4ML CARPUJECT IV ONE (15:30)
[2018-03-30] MEDS ORDERED: FUROSEMIDE 40MG/4ML VIAL IVP ONE ×2 (16:45→17:00)
[2018-03-30 17:04] VITALS: BP 170/88
== END 2018-03-30 17:37 | disposition home or self-care (01) ==
LOC: ER 14:09
DX: I11.0 Hypertensive heart disease with heart failure (principal); I50.9 Heart failure, unspecified; E11.9 Type 2 diabetes mellitus without complications; Z91.14 Patient's other noncompliance with medication regimen; Z95.0 Presence of cardiac pacemaker; Z79.899 Other long term (current) drug therapy; Z79.82 Long term (current) use of aspirin; Z79.4 Long term (current) use of insulin
CPT/HCPCS: 36415; 71045; 80053; 83880; 84484; 85025; 93005; 96374; 99284; J3490

== ENCOUNTER 2018-03-31 11:31 | Inpatient (IN) | payer MEDICARE, MEDICAID ==
[~2018-03-31] VITALS: Ht 175.3 cm; Wt 105.4 kg
[2018-03-31 12:51] LABS: BASOPHILS % 0.3 % (0.0-2.0); EOSINOPHILS % 0.9 % (0.0-5.0); HEMATOCRIT. 37.3 % (42.0-52.0); LYMPHOCYTES % 21.2 % (20.0-50.0); MEAN CORPUSCULAR HEMOGLOBIN 26.2 pg (28.0-32.0); MEAN CORPUSCULAR VOLUME 81.4 fL (80.0-94.0); MEAN PLATELET VOLUME 10.3 fl (7.4-10.4); NEUTROPHILS % 68.6 % (40.0-76.0); PLATELET 176 x1000/uL (130-400); RED BLOOD CELL COUNT 4.59 mill/uL (4.7-6.1); RED CELL DISTRIBUTION WIDTH 14.9 % (11.6-14.6)
[2018-03-31 12:55] LABS: CHLORIDE 103 mEq/L (98-107)
[2018-03-31 13:00] LABS: ETHANOL BLOOD < 10 mg/dL; INR 1.1; PARTIAL THROMBOPLASTIN TIME 26.6 sec (23.4-31.0)
[2018-03-31 13:01] LABS: PHOSPHORUS 2.5 mg/dL (2.5-4.9)
[2018-03-31 13:05] LABS: T4 FREE 1.21 ng/dL (0.76-1.46)
[2018-03-31 13:21] LABS: DIGOXIN 1.3 ng/mL (0.9-2.0)
[2018-03-31] MEDS ORDERED: FUROSEMIDE 20MG/2ML VIAL IVP ONE (13:45)
[2018-03-31] MEDS ORDERED: INSULIN REGULAR (HUMULIN R) UD 100 UNITS/ML SYR IV ONE (14:00)
[2018-03-31] MEDS ORDERED: DILTIAZEM HCL 5MG/ML 5ML VIAL IV PRN (14:30)
[2018-03-31] MEDS ORDERED: DEXTROSE 50% WATER 50ML SYRINGE IV PRN (14:45)
[2018-03-31] MEDS ORDERED: INSULIN REGULAR (HUMULIN R) 300UNITS/3ML IV ONE (16:00)
[2018-03-31 16:33] LABS: *BARBITURATES SCREEN URINE NEGATIVE (NEGATIVE); *BENZODIAZEPINES SCREEN URINE NEGATIVE (NEGATIVE); *COCAINE SCREEN URINE NEGATIVE (NEGATIVE); METHADONE URINE SCREEN NEGATIVE (NEGATIVE); OPIATES URINE SCREEN NEGATIVE (NEGATIVE)
[2018-03-31 16:34] LABS: CANNABINOID URINE SCREEN NEGATIVE (NEGATIVE); PHENCYCLIDINE URINE SCREEN NEGATIVE (NEGATIVE)
[2018-03-31 16:37] LABS: *AMPHETAMINES SCREEN URINE NEGATIVE (NEGATIVE)
[2018-03-31 21:28] VITALS: BP 157/101
[2018-03-31] MEDS ORDERED: ATORVASTATIN CALCIUM 20MG TABLET PO SCH (22:45)
[2018-03-31] MEDS ORDERED: DIGOXIN 125MCG TABLET PO SCH (23:00)
[2018-03-31] MEDS ORDERED: ENOXAPARIN 100MG/ML SYR SUBCUT ONE (23:00)
[2018-03-31] MEDS: SOTALOL HCL 120MG TABLET PO SCH (23:15)
[2018-03-31] MEDS ORDERED: INFLUENZA VIRUS VACCINE(AFLURIA) 0.5ML SYR IM ONE (23:15)
[2018-03-31] MEDS: INSULIN LISPRO 100 UNITS/ML SUBCUT SCH (23:20)
[2018-03-31] MEDS: BLOOD SUGAR DIAGNOSTIC STRIP TEST SCH (23:25)
[2018-04-01] MEDS: INSULIN GLARGINE UD 100 UNITS/ML SYR SUBCUT SCH ×2 (00:25→10:31)
[2018-04-01 04:00] VITALS: BP 137/73
[2018-04-01] MEDS: BLOOD SUGAR DIAGNOSTIC STRIP TEST SCH ×2 (06:04→12:28)
[2018-04-01] MEDS: INSULIN LISPRO 100 UNITS/ML SUBCUT SCH ×3 (07:01→17:15)
[2018-04-01 08:00] VITALS: BP 157/93
[2018-04-01 08:45] LABS: BASOPHILS % 0.8 % (0.0-2.0); EOSINOPHILS % 2.2 % (0.0-5.0); HEMATOCRIT. 36.3 % (42.0-52.0); HEMOGLOBIN. 11.8 g/dL (14.0-18.0); LYMPHOCYTES % 31.1 % (20.0-50.0); MEAN CORPUSCULAR HEMOGLOBIN 26.2 pg (28.0-32.0); MEAN CORPUSCULAR VOLUME 80.6 fL (80.0-94.0); MONOCYTES % 8.3 % (2.0-8.0); NEUTROPHILS % 57.6 % (40.0-76.0); PLATELET 185 x1000/uL (130-400); RED BLOOD CELL COUNT 4.51 mill/uL (4.7-6.1); RED CELL DISTRIBUTION WIDTH 14.5 % (11.6-14.6)
[2018-04-01] MEDS ORDERED: FUROSEMIDE 40MG/4ML VIAL IVP SCH (09:00)
[2018-04-01 09:18] LABS: CHLORIDE 106 mEq/L (98-107)
[2018-04-01] MEDS: SOTALOL HCL 120MG TABLET PO SCH (09:19)
[2018-04-01 12:00] VITALS: BP 145/89
[2018-04-01] MEDS ORDERED: LOSARTAN POTASSIUM 50 MG TABLET PO SCH (12:45)
[2018-04-01] MEDS ORDERED: POTASSIUM CHLORIDE 20MEQ TABLET SR PO SCH (13:00)
[2018-04-01] MEDS ORDERED: HYDRALAZINE HCL 50MG TABLET PO SCH (14:00)
[2018-04-01] MEDS: APIXABAN 5 MG TABLET PO SCH ×2 (14:16→17:00)
[2018-04-01 16:00] VITALS: BP 153/84
[2018-04-01] MEDS ORDERED: LANTUSUD SUBCUT (16:09)
[2018-04-01] MEDS ORDERED: FURO40TA5 MT ×2 (16:09→16:10)
[2018-04-01] MEDS ORDERED: SOTA80TA25 PO (16:09)
[2018-04-01] MEDS ORDERED: HYDR-4135 PO (16:09)
[2018-04-01] MEDS ORDERED: POTA20TA82 PO (16:09)
[2018-04-01 17:29] VITALS: BP 153/84
[2018-04-01] MEDS ORDERED: SOTALOL HCL 80MG TABLET PO SCH (21:00)
== END 2018-04-01 18:10 | disposition home or self-care (01) | DRG 280 ==
LOC: EDBEDREQ 11:54 → ER 12:37 → 5WST 13:46 → EDBEDREQ 13:49 → CANRESERV 16:58 → ENRESERV 16:58
PROVIDERS: ADMIT Internal Medicine; ATTEND Internal Medicine
PROC: 4B02XTZ Measurement of Cardiac Defibrillator, External Approach (ICD-10-PCS; principal; 2018-03-31)
DX: T82.897A Other specified complication of cardiac prosthetic devices, implants and grafts, initial encounter (principal); I21.9 Acute myocardial infarction, unspecified; I50.31 Acute diastolic (congestive) heart failure; I13.0 Hypertensive heart and chronic kidney disease with heart failure and stage 1 through stage 4 chronic kidney disease, or unspecified chronic kidney disease; N17.9 Acute kidney failure, unspecified; E44.0 Moderate protein-calorie malnutrition; D64.9 Anemia, unspecified; E11.22 Type 2 diabetes mellitus with diabetic chronic kidney disease; E11.65 Type 2 diabetes mellitus with hyperglycemia; E66.9 Obesity, unspecified; E78.00 Pure hypercholesterolemia, unspecified; E78.5 Hyperlipidemia, unspecified; I25.10 Atherosclerotic heart disease of native coronary artery without angina pectoris; I25.5 Ischemic cardiomyopathy; I48.91 Unspecified atrial fibrillation; N18.9 Chronic kidney disease, unspecified; Z95.810 Presence of automatic (implantable) cardiac defibrillator; Z79.01 Long term (current) use of anticoagulants; Y83.8 Other surgical procedures as the cause of abnormal reaction of the patient, or of later complication, without mention of misadventure at the time of the procedure; Y92.89 Other specified places as the place of occurrence of the external cause; Z68.34 Body mass index [BMI] 34.0-34.9, adult; Z79.82 Long term (current) use of aspirin; Z79.899 Other long term (current) drug therapy; Z79.84 Long term (current) use of oral hypoglycemic drugs; F17.210 Nicotine dependence, cigarettes, uncomplicated
CPT/HCPCS: 36415; 71045; 80048; 80162; 80305; 82962; 83735; 83880; 84100; 84439; 84443; 84484; 90686; 93005; G0482; J1650; J1815; J1940

== ENCOUNTER 2018-04-30 10:51 | Inpatient (IN) | payer MEDICARE, MEDICAID ==
[~2018-04-30] VITALS: Ht 175.3 cm; Wt 121.6 kg
[~2018-04-30 10:51] MED LIST changes: +COR25 PO; +DILT360C28 MT; +DILT60TA35 PO; +FURO-151 PO; +FURO40TA5 MT; +FURO40TA5 PO; +HYDR-4135 PO; +LANTUSUD SUBCUT; +LOSA50TA3 PO; +METO5TAB69 PO; +POTA20TA82 PO; +SOTA80TA25 PO
[2018-04-30 13:02] LABS: CHLORIDE 103 mEq/L (98-107)
[2018-04-30 13:19] LABS: BASOPHILS % 0.3 % (0.0-2.0); EOSINOPHILS % 1.6 % (0.0-5.0); HEMATOCRIT. 34.7 % (42.0-52.0); HEMOGLOBIN. 11.2 g/dL (14.0-18.0); LYMPHOCYTES % 10.5 % (20.0-50.0); MEAN CORPUSCULAR VOLUME 80.3 fL (80.0-94.0); MEAN PLATELET VOLUME 9.6 fl (7.4-10.4); NEUTROPHILS % 79.6 % (40.0-76.0); PLATELET 238 x1000/uL (130-400); RED BLOOD CELL COUNT 4.32 mill/uL (4.7-6.1); RED CELL DISTRIBUTION WIDTH 14.6 % (11.6-14.6)
[2018-04-30] MEDS ORDERED: BRIM5DRO6 EACHEYE (15:31)
[2018-04-30] MEDS ORDERED: MEX150 MT (15:36)
[2018-04-30] MEDS ORDERED: CARV25TA47 MT (15:36)
[2018-04-30] MEDS ORDERED: LATA2.5D2 EACHEYE (15:36)
[2018-04-30] MEDS ORDERED: AMIO100T4 PO (15:36)
[2018-04-30] MEDS ORDERED: ISOS30TA12 MT (15:36)
[2018-04-30 16:00] VITALS: BP 177/83
[2018-04-30] MEDS ORDERED: CLONIDINE 0.1MG TABLET PO PRN (16:00)
[2018-04-30 16:05] VITALS: BP 177/83
[2018-04-30] MEDS ORDERED: LORAZEPAM 0.5MG TABLET PO PRN (16:15)
[2018-04-30] MEDS ORDERED: DOCUSATE SODIUM 100MG CAPSULE PO PRN (16:15)
[2018-04-30] MEDS ORDERED: HYDROCODONE/ACETAMINOPHEN 5/325MG TABLET PO PRN (16:15)
[2018-04-30] MEDS ORDERED: ACETAMINOPHEN 325MG TABLET PO PRN (16:15)
[2018-04-30] MEDS ORDERED: IPRATROPIUM/ALBUTEROL 0.5-3(2.5)MG/3ML NEB INH PRN (16:15)
[2018-04-30] MEDS ORDERED: ONDANSETRON HCL 4MG/2ML INJ IV PRN (16:15)
[2018-04-30] MEDS ORDERED: DEXTROSE 50% WATER 50ML SYRINGE IV PRN ×2 (16:30)
[2018-04-30] MEDS: BLOOD SUGAR DIAGNOSTIC STRIP TEST SCH ×2 (16:33→20:59)
[2018-04-30] MEDS: AMIODARONE HCL 200 MG TABLET PO SCH ×2 (16:33→21:03)
[2018-04-30] MEDS: INSULIN LISPRO 100 UNITS/ML SUBCUT SCH ×2 (16:46→20:59)
[2018-04-30 17:36] LABS: INR 1.1; PROTHROMBIN TIME 10.8 sec (9.1-11.1)
[2018-04-30 20:00] VITALS: BP 153/62
[2018-04-30] MEDS: ENOXAPARIN 100MG/ML SYR SUBCUT SCH (21:02)
[2018-04-30] MEDS: HYDRALAZINE HCL 50MG TABLET PO SCH (21:03)
[2018-04-30] MEDS: CARVEDILOL 25MG TABLET PO SCH (21:03)
[2018-04-30] MEDS: ATORVASTATIN CALCIUM 20MG TABLET PO SCH (21:03)
[2018-04-30] MEDS: INSULIN GLARGINE UD 100 UNITS/ML SYR SUBCUT SCH (21:56)
[2018-04-30] MEDS: LATANOPROST 0.005% OPHTH DROPS 2.5ML EACHEYE SCH (21:57)
[2018-05-01] VITALS (8 sets, daily range): BP systolic 136–162; BP diastolic 69–84
[2018-05-01] MEDS: BLOOD SUGAR DIAGNOSTIC STRIP TEST SCH ×4 (05:23→20:07)
[2018-05-01] MEDS: AMIODARONE HCL 200 MG TABLET PO SCH ×3 (06:09→20:38)
[2018-05-01] MEDS: HYDRALAZINE HCL 50MG TABLET PO SCH ×3 (06:09→20:39)
[2018-05-01] MEDS: INSULIN LISPRO 100 UNITS/ML SUBCUT SCH ×4 (06:15→20:38)
[2018-05-01 07:58] LABS: BASOPHILS % 0.4 % (0.0-2.0); EOSINOPHILS % 2.9 % (0.0-5.0); HEMATOCRIT. 31.8 % (42.0-52.0); HEMOGLOBIN. 10.2 g/dL (14.0-18.0); LYMPHOCYTES % 17.1 % (20.0-50.0); MEAN CORPUSCULAR HEMOGLOBIN 25.4 pg (28.0-32.0); MEAN CORPUSCULAR VOLUME 79.2 fL (80.0-94.0); MEAN PLATELET VOLUME 9.3 fl (7.4-10.4); MONOCYTES % 11.7 % (2.0-8.0); NEUTROPHILS % 67.9 % (40.0-76.0); PLATELET 245 x1000/uL (130-400); RED BLOOD CELL COUNT 4.02 mill/uL (4.7-6.1); RED CELL DISTRIBUTION WIDTH 14.3 % (11.6-14.6)
[2018-05-01 09:01] LABS: CHLORIDE 107 mEq/L (98-107)
[2018-05-01 09:11] LABS: LDL CHOLESTEROL 73 mg/dL (5-100)
[2018-05-01 09:12] LABS: HDL CHOLESTEROL 23 mg/dL (40-59)
[2018-05-01 09:13] LABS: CREATINE KINASE 100 IU/L (39-308)
[2018-05-01 09:15] LABS: CREATINE KINASE MB FRACTION 1.4 ng/mL (0.5-3.6)
[2018-05-01 09:21] LABS: TOTAL IRON BINDING CAPACITY 244 ug/dL (250-450)
[2018-05-01] MEDS: CARVEDILOL 25MG TABLET PO SCH ×2 (09:26→20:38)
[2018-05-01] MEDS: ENOXAPARIN 100MG/ML SYR SUBCUT SCH (09:27)
[2018-05-01] MEDS: INSULIN GLARGINE UD 100 UNITS/ML SYR SUBCUT SCH ×2 (09:28→21:30)
[2018-05-01 09:37] LABS: FOLIC ACID (FOLATE) SERUM 15.9 ng/mL (>5.38)
[2018-05-01] MEDS: POTASSIUM CHLORIDE 20MEQ TABLET SR PO SCH ×2 (11:32→16:21)
[2018-05-01] MEDS: FUROSEMIDE 40MG/4ML VIAL IVP SCH ×2 (11:32→16:21)
[2018-05-01] MEDS: ENOXAPARIN 120MG/0.8ML SYR SUBCUT SCH (20:37)
[2018-05-01] MEDS: ATORVASTATIN CALCIUM 20MG TABLET PO SCH (20:37)
[2018-05-01] MEDS: LATANOPROST 0.005% OPHTH DROPS 2.5ML EACHEYE SCH (21:27)
[2018-05-02] VITALS (7 sets, daily range): BP systolic 101–162; BP diastolic 49–78
[2018-05-02] MEDS: BLOOD SUGAR DIAGNOSTIC STRIP TEST SCH ×3 (05:23→17:52)
[2018-05-02] MEDS: AMIODARONE HCL 200 MG TABLET PO SCH ×2 (05:36→14:36)
[2018-05-02] MEDS: INSULIN LISPRO 100 UNITS/ML SUBCUT SCH ×2 (05:36→12:40)
[2018-05-02] MEDS: HYDRALAZINE HCL 50MG TABLET PO SCH ×2 (05:37→14:36)
[2018-05-02] MEDS ORDERED: INSULIN LISPRO 100 UNITS/ML SUBCUT SCH (07:10)
[2018-05-02 08:01] LABS: CHLORIDE 107 mEq/L (98-107)
[2018-05-02 08:02] LABS: BASOPHILS % 0.4 % (0.0-2.0); EOSINOPHILS % 2.4 % (0.0-5.0); HEMATOCRIT. 30.4 % (42.0-52.0); HEMOGLOBIN. 9.8 g/dL (14.0-18.0); LYMPHOCYTES % 20.2 % (20.0-50.0); MEAN CORPUSCULAR HEMOGLOBIN 25.8 pg (28.0-32.0); MEAN CORPUSCULAR VOLUME 80.1 fL (80.0-94.0); PLATELET 259 x1000/uL (130-400); RED CELL DISTRIBUTION WIDTH 14.4 % (11.6-14.6)
[2018-05-02 08:11] LABS: PHOSPHORUS 2.4 mg/dL (2.5-4.9)
[2018-05-02 08:13] LABS: CREATINE KINASE 66 IU/L (39-308)
[2018-05-02 08:17] LABS: CREATINE KINASE MB FRACTION < 1.0 ng/mL (0.5-3.6)
[2018-05-02] MEDS: CARVEDILOL 25MG TABLET PO SCH (09:00)
[2018-05-02] MEDS: POTASSIUM CHLORIDE 20MEQ TABLET SR PO SCH ×2 (09:13→17:52)
[2018-05-02] MEDS: FUROSEMIDE 40MG/4ML VIAL IVP SCH (09:13)
[2018-05-02] MEDS: ENOXAPARIN 120MG/0.8ML SYR SUBCUT SCH (09:14)
[2018-05-02] MEDS ORDERED: INSULIN GLARGINE UD 100 UNITS/ML SYR SUBCUT SCH (10:00)
[2018-05-02] MEDS ORDERED: FUROSEMIDE 40MG TABLET PO SCH (17:15)
[2018-05-03 13:10] LABS: *CREATININE RANDOM URINE 122.5 mg/dL (Not Estab.); MICROALBUMIN RANDOM URINE 220.9 ug/mL (Not Estab.)
[2018-05-05 13:06] LABS: ANTI-PARIETAL CELL AB 24.4 Units (0.0-20.0)
== END 2018-05-02 18:35 | disposition home or self-care (01) | DRG 280 ==
LOC: ER 10:51 → 8WST 12:13 → EDBEDREQ 12:17 → ENRESERV 14:06
PROVIDERS: ADMIT Internal Medicine; ATTEND Internal Medicine
PROC: 4B02XTZ Measurement of Cardiac Defibrillator, External Approach (ICD-10-PCS; principal; 2018-04-30)
DX: T82.118A Breakdown (mechanical) of other cardiac electronic device, initial encounter (principal); I21.4 Non-ST elevation (NSTEMI) myocardial infarction; I50.33 Acute on chronic diastolic (congestive) heart failure; I31.3 Pericardial effusion (noninflammatory); I13.0 Hypertensive heart and chronic kidney disease with heart failure and stage 1 through stage 4 chronic kidney disease, or unspecified chronic kidney disease; I47.2 Ventricular tachycardia; I16.0 Hypertensive urgency; I48.0 Paroxysmal atrial fibrillation; E78.5 Hyperlipidemia, unspecified; Z95.810 Presence of automatic (implantable) cardiac defibrillator; E11.65 Type 2 diabetes mellitus with hyperglycemia; E11.22 Type 2 diabetes mellitus with diabetic chronic kidney disease; D63.8 Anemia in other chronic diseases classified elsewhere; I25.5 Ischemic cardiomyopathy; E78.00 Pure hypercholesterolemia, unspecified; I48.2 Chronic atrial fibrillation; I25.10 Atherosclerotic heart disease of native coronary artery without angina pectoris; I44.0 Atrioventricular block, first degree; I45.10 Unspecified right bundle-branch block; N18.9 Chronic kidney disease, unspecified; D50.9 Iron deficiency anemia, unspecified; E53.8 Deficiency of other specified B group vitamins; E88.81 Metabolic syndrome and other insulin resistance; E66.01 Morbid (severe) obesity due to excess calories; Y71.2 Prosthetic and other implants, materials and accessory cardiovascular devices associated with adverse incidents; Z79.4 Long term (current) use of insulin; I25.2 Old myocardial infarction; Z91.14 Patient's other noncompliance with medication regimen; Z79.01 Long term (current) use of anticoagulants; Z68.39 Body mass index [BMI] 39.0-39.9, adult; Z79.899 Other long term (current) drug therapy; Z79.82 Long term (current) use of aspirin; Y92.89 Other specified places as the place of occurrence of the external cause
CPT/HCPCS: 36415; 71045; 80061; 82043; 82550; 82553; 82570; 82607; 82728; 82746; 82962; 83036; 83540; 83550; 83735; 83880; 84100; 84484; 86340; 93005; 93306; 96372; 99285; J1650; J1815; J1940; J7620

== ENCOUNTER 2018-06-06 14:32 | Inpatient (IN) | payer MEDICARE, MEDICAID ==
[~2018-06-06] VITALS: Ht 175.3 cm; Wt 108.0 kg
[~2018-06-06 14:32] MED LIST changes: +AMIO100T4 PO; +BRIM5DRO6 EACHEYE; +CARV25TA47 MT; -COR25 PO; -DILT360C28 MT; -DILT60TA35 PO; -DOCU-150 PO; -FURO-151 PO; -FURO40TA5 PO; -GABA-529 MT; -HYDR-4134 PO; +ISOS30TA12 MT; +LATA2.5D2 EACHEYE; -LEVVL SUBCUT; -LOSA50TA3 PO; -METO5TAB69 PO; +MEX150 MT; -PANT40SU PO; -TRAM50TA3 PO
[2018-06-06] MEDS ORDERED: CLONIDINE 0.2MG TABLET PO ONE (17:15)
[2018-06-06] MEDS ORDERED: NITROGLYCERIN 0.4MG TABLET SL SL PRN (17:15)
[2018-06-06 17:48] LABS: BASOPHILS % 0.5 % (0.0-2.0); EOSINOPHILS % 1.8 % (0.0-5.0); HEMATOCRIT. 37.8 % (42.0-52.0); HEMOGLOBIN. 12.2 g/dL (14.0-18.0); LYMPHOCYTES % 22.8 % (20.0-50.0); MEAN CORPUSCULAR HEMOGLOBIN 25.7 pg (28.0-32.0); MEAN CORPUSCULAR VOLUME 79.3 fL (80.0-94.0); MEAN PLATELET VOLUME 9.1 fl (7.4-10.4); MONOCYTES % 8.7 % (2.0-8.0); NEUTROPHILS % 66.2 % (40.0-76.0); PLATELET 172 x1000/uL (130-400); RED BLOOD CELL COUNT 4.77 mill/uL (4.7-6.1); RED CELL DISTRIBUTION WIDTH 16.2 % (11.6-14.6)
[2018-06-06 17:49] LABS: CHLORIDE 104 mEq/L (98-107)
[2018-06-06 17:52] LABS: PARTIAL THROMBOPLASTIN TIME 23.5 sec (23.4-31.0); PROTHROMBIN TIME 10.5 sec (9.1-11.1)
[2018-06-06] MEDS ORDERED: CLONIDINE 0.1MG TABLET PO ONE (19:00)
[2018-06-06] MEDS ORDERED: HYDRALAZINE 20MG/ML VIAL IV ONE (19:15)
[2018-06-06] MEDS ORDERED: GUAIFENESIN 200MG/10ML SUGAR FREE UDC PO PRN (20:45)
[2018-06-06] MEDS ORDERED: IPRATROPIUM/ALBUTEROL 0.5-3(2.5)MG/3ML NEB INH PRN ×2 (20:45→22:30)
[2018-06-06] MEDS ORDERED: ACETAMINOPHEN 325MG TABLET PO PRN ×2 (20:45→22:30)
[2018-06-06] MEDS ORDERED: DOCUSATE SODIUM 100MG CAPSULE PO PRN ×2 (20:45→22:30)
[2018-06-06] MEDS ORDERED: HYDROCODONE/ACETAMINOPHEN 5/325MG TABLET PO PRN ×2 (20:45→22:30)
[2018-06-06] MEDS ORDERED: DIPHENHYDRAMINE 50MG/ML VIAL IV PRN (20:45)
[2018-06-06] MEDS ORDERED: ONDANSETRON HCL 4MG/2ML INJ IV PRN ×2 (20:45→22:30)
[2018-06-06 21:15] LABS: PHOSPHORUS 2.9 mg/dL (2.5-4.9)
[2018-06-06 21:17] LABS: CLARITY URINE CLEAR (CLEAR); COLOR URINE YELLOW (YELLOW); KETONES URINE NEGATIVE (NEGATIVE); LEUKOCYTE ESTERASE URINE NEGATIVE (NEGATIVE); NITRITE URINE NEGATIVE (NEGATIVE); OCCULT BLOOD URINE NEGATIVE (NEGATIVE); PROTEIN URINE 2+ (NEGATIVE); SPECIFIC GRAVITY URINE 1.015 (1.005-1.030); UROBILINOGEN URINE 0.2 E.U./dL (0.2-1.0)
[2018-06-06 21:27] LABS: *AMPHETAMINES SCREEN URINE NEGATIVE (NEGATIVE); *BARBITURATES SCREEN URINE NEGATIVE (NEGATIVE); *BENZODIAZEPINES SCREEN URINE NEGATIVE (NEGATIVE); *COCAINE SCREEN URINE NEGATIVE (NEGATIVE)
[2018-06-06 21:28] LABS: CANNABINOID URINE SCREEN NEGATIVE (NEGATIVE); METHADONE URINE SCREEN NEGATIVE (NEGATIVE); OPIATES URINE SCREEN NEGATIVE (NEGATIVE); PHENCYCLIDINE URINE SCREEN NEGATIVE (NEGATIVE)
[2018-06-06] MEDS ORDERED: ENOXAPARIN 40MG/0.4ML SYR SUBCUT SCH (22:30)
[2018-06-06] MEDS ORDERED: MAGNESIUM/ALUMINUM HYDROXIDE/SIMETHICONE 30ML UDC PO PRN (22:30)
[2018-06-06] MEDS ORDERED: CLONIDINE 0.1MG TABLET PO PRN (22:30)
[2018-06-07 04:10] LABS: BASOPHILS % 0.6 % (0.0-2.0); EOSINOPHILS % 2.6 % (0.0-5.0); HEMATOCRIT. 36.3 % (42.0-52.0); HEMOGLOBIN. 11.8 g/dL (14.0-18.0); MEAN CORPUSCULAR HEMOGLOBIN 25.8 pg (28.0-32.0); MEAN CORPUSCULAR VOLUME 79.1 fL (80.0-94.0); MONOCYTES % 8.8 % (2.0-8.0); PLATELET 169 x1000/uL (130-400); RED BLOOD CELL COUNT 4.59 mill/uL (4.7-6.1); RED CELL DISTRIBUTION WIDTH 16.7 % (11.6-14.6)
[2018-06-07 04:22] LABS: CHLORIDE 105 mEq/L (98-107)
[2018-06-07 04:32] LABS: LDL CHOLESTEROL 96 mg/dL (5-100)
[2018-06-07 04:33] LABS: CREATINE KINASE 89 IU/L (39-308); HDL CHOLESTEROL 43 mg/dL (40-59)
[2018-06-07 04:36] LABS: CREATINE KINASE MB FRACTION 2.2 ng/mL (0.5-3.6)
[2018-06-07] MEDS ORDERED: AMIODARONE HCL 200 MG TABLET PO SCH (11:15)
[2018-06-07] MEDS ORDERED: CARVEDILOL 12.5MG TABLET PO SCH (11:15)
[2018-06-07] MEDS ORDERED: POTASSIUM CHLORIDE 20MEQ TABLET SR PO SCH (11:15)
[2018-06-07] MEDS ORDERED: POTASSIUM CHLORIDE 20MEQ TABLET SR PO ONE (11:15)
[2018-06-07] MEDS ORDERED: HYDRALAZINE 20MG/ML VIAL IV PRN (11:30)
[2018-06-07] MEDS ORDERED: HYDRALAZINE HCL 100MG TABLET PO SCH (14:00)
[2018-06-07 15:00] VITALS: BP 180/77
[2018-06-07] MEDS: AMIODARONE HCL 200 MG TABLET PO SCH ×2 (15:18→22:46)
[2018-06-07] MEDS: CARVEDILOL 12.5MG TABLET PO SCH ×2 (15:20→22:47)
[2018-06-07] MEDS: ENOXAPARIN 40MG/0.4ML SYR SUBCUT SCH (15:21)
[2018-06-07] MEDS: HYDRALAZINE HCL 100MG TABLET PO SCH ×2 (15:22→22:46)
[2018-06-07 20:00] VITALS: BP 162/75
[2018-06-07] MEDS ORDERED: ATORVASTATIN CALCIUM 20MG TABLET PO SCH (21:00)
[2018-06-07] MEDS ORDERED: DEXTROSE 50% WATER 50ML SYRINGE IV PRN (21:30)
[2018-06-07] MEDS: ATORVASTATIN CALCIUM 20MG TABLET PO SCH (22:11)
[2018-06-07] MEDS: LATANOPROST 0.005% OPHTH DROPS 2.5ML EACHEYE SCH (22:12)
[2018-06-07] MEDS: BLOOD SUGAR DIAGNOSTIC STRIP TEST SCH (22:20)
[2018-06-07] MEDS: INSULIN LISPRO 100 UNITS/ML SUBCUT SCH (22:47)
[2018-06-07] MEDS: INSULIN GLARGINE UD 100 UNITS/ML SYR SUBCUT SCH (23:50)
[2018-06-08] VITALS: BP 139/56
[2018-06-08 04:00] VITALS: BP 170/79
[2018-06-08] MEDS: HYDRALAZINE HCL 100MG TABLET PO SCH ×3 (06:17→22:12)
[2018-06-08] MEDS: BLOOD SUGAR DIAGNOSTIC STRIP TEST SCH ×4 (06:20→20:47)
[2018-06-08 06:58] LABS: BASOPHILS % 0.5 % (0.0-2.0); EOSINOPHILS % 1.9 % (0.0-5.0); HEMOGLOBIN. 10.9 g/dL (14.0-18.0); LYMPHOCYTES % 22.1 % (20.0-50.0); MEAN CORPUSCULAR HEMOGLOBIN 25.5 pg (28.0-32.0); MEAN CORPUSCULAR VOLUME 79.9 fL (80.0-94.0); MEAN PLATELET VOLUME 9.3 fl (7.4-10.4); MONOCYTES % 11.8 % (2.0-8.0); NEUTROPHILS % 63.7 % (40.0-76.0); PLATELET 169 x1000/uL (130-400); RED BLOOD CELL COUNT 4.25 mill/uL (4.7-6.1); RED CELL DISTRIBUTION WIDTH 16.4 % (11.6-14.6)
[2018-06-08] MEDS: CARVEDILOL 12.5MG TABLET PO SCH ×2 (09:41→20:43)
[2018-06-08] MEDS: INSULIN LISPRO 100 UNITS/ML SUBCUT SCH ×4 (09:49→20:47)
[2018-06-08] MEDS: AMIODARONE HCL 200 MG TABLET PO SCH ×2 (09:57→20:42)
[2018-06-08] MEDS: INSULIN GLARGINE UD 100 UNITS/ML SYR SUBCUT SCH ×2 (10:41→22:14)
[2018-06-08 12:06] VITALS: BP 124/56
[2018-06-08] MEDS: ENOXAPARIN 40MG/0.4ML SYR SUBCUT SCH (13:24)
[2018-06-08 15:37] VITALS: BP 178/88
[2018-06-08 20:28] VITALS: BP 168/85
[2018-06-08] MEDS: ATORVASTATIN CALCIUM 20MG TABLET PO SCH (20:42)
[2018-06-08] MEDS: LATANOPROST 0.005% OPHTH DROPS 2.5ML EACHEYE SCH (20:44)
[2018-06-08 21:01] VITALS: BP 168/78
[2018-06-09] VITALS (7 sets, daily range): BP systolic 125–177; BP diastolic 58–80
[2018-06-09] MEDS: HYDRALAZINE HCL 100MG TABLET PO SCH ×3 (05:35→21:31)
[2018-06-09 06:34] LABS: BASOPHILS % 0.4 % (0.0-2.0); EOSINOPHILS % 1.9 % (0.0-5.0); HEMATOCRIT. 32.1 % (42.0-52.0); HEMOGLOBIN. 10.4 g/dL (14.0-18.0); LYMPHOCYTES % 25.1 % (20.0-50.0); MEAN CORPUSCULAR HEMOGLOBIN 25.6 pg (28.0-32.0); MEAN PLATELET VOLUME 9.8 fl (7.4-10.4); MONOCYTES % 10.5 % (2.0-8.0); NEUTROPHILS % 62.1 % (40.0-76.0); PLATELET 166 x1000/uL (130-400); RED BLOOD CELL COUNT 4.06 mill/uL (4.7-6.1); RED CELL DISTRIBUTION WIDTH 16.7 % (11.6-14.6)
[2018-06-09] MEDS: BLOOD SUGAR DIAGNOSTIC STRIP TEST SCH ×4 (07:00→21:00)
[2018-06-09] MEDS: INSULIN LISPRO 100 UNITS/ML SUBCUT SCH ×4 (08:01→21:34)
[2018-06-09] MEDS: FUROSEMIDE 40MG/4ML VIAL IVP SCH (08:46)
[2018-06-09] MEDS: AMIODARONE HCL 200 MG TABLET PO SCH ×2 (08:46→21:30)
[2018-06-09] MEDS: CARVEDILOL 12.5MG TABLET PO SCH ×2 (08:46→21:00)
[2018-06-09] MEDS: INSULIN GLARGINE UD 100 UNITS/ML SYR SUBCUT SCH ×2 (09:52→21:35)
[2018-06-09] MEDS: DOCUSATE SODIUM 100MG CAPSULE PO PRN ×2 (09:52→17:26)
[2018-06-09] MEDS: ENOXAPARIN 40MG/0.4ML SYR SUBCUT SCH (13:27)
[2018-06-09] MEDS: LATANOPROST 0.005% OPHTH DROPS 2.5ML EACHEYE SCH (21:29)
[2018-06-09] MEDS: ATORVASTATIN CALCIUM 20MG TABLET PO SCH (21:30)
[2018-06-10 04:00] VITALS: BP 186/86
[2018-06-10 06:31] LABS: BASOPHILS % 0.6 % (0.0-2.0); EOSINOPHILS % 2.1 % (0.0-5.0); HEMATOCRIT. 33.5 % (42.0-52.0); HEMOGLOBIN. 10.7 g/dL (14.0-18.0); LYMPHOCYTES % 23.8 % (20.0-50.0); MEAN CORPUSCULAR HEMOGLOBIN 25.5 pg (28.0-32.0); MEAN CORPUSCULAR VOLUME 79.5 fL (80.0-94.0); MEAN PLATELET VOLUME 9.2 fl (7.4-10.4); MONOCYTES % 11.1 % (2.0-8.0); NEUTROPHILS % 62.4 % (40.0-76.0); PLATELET 154 x1000/uL (130-400); RED BLOOD CELL COUNT 4.22 mill/uL (4.7-6.1); RED CELL DISTRIBUTION WIDTH 16.5 % (11.6-14.6)
[2018-06-10] MEDS: HYDRALAZINE HCL 100MG TABLET PO SCH ×2 (06:39→14:08)
[2018-06-10] MEDS: BLOOD SUGAR DIAGNOSTIC STRIP TEST SCH ×3 (06:40→18:02)
[2018-06-10 07:06] LABS: CHLORIDE 106 mEq/L (98-107)
[2018-06-10] MEDS: INSULIN LISPRO 100 UNITS/ML SUBCUT SCH ×3 (07:50→18:06)
[2018-06-10 08:02] VITALS: BP 156/77
[2018-06-10] MEDS: CARVEDILOL 12.5MG TABLET PO SCH (09:00)
[2018-06-10] MEDS: AMIODARONE HCL 200 MG TABLET PO SCH (09:38)
[2018-06-10] MEDS: FUROSEMIDE 40MG/4ML VIAL IVP SCH (09:38)
[2018-06-10] MEDS: INSULIN GLARGINE UD 100 UNITS/ML SYR SUBCUT SCH (09:43)
[2018-06-10 11:37] VITALS: BP 159/70
[2018-06-10] MEDS: ENOXAPARIN 40MG/0.4ML SYR SUBCUT SCH (14:09)
[2018-06-10] MEDS ORDERED: COR12 PO (14:48)
[2018-06-10] MEDS ORDERED: HYDR100T26 PO (14:48)
[2018-06-10] MEDS ORDERED: AMI2 PO (14:48)
[2018-06-10] MEDS ORDERED: LANTUSUD SUBCUT (14:48)
[2018-06-10 16:06] VITALS: BP 166/70
[2018-06-10 18:16] VITALS: BP 156/74
== END 2018-06-10 18:42 | disposition home or self-care (01) | DRG 309 ==
LOC: ER 14:32 → 6WST 19:40 → EDBEDREQ 19:49 → EDBEDREQTM 19:49 → CANRESERV 06-07 08:07 → ENRESERV 06-07 08:07 → ER 06-07 13:17
PROVIDERS: ADMIT Internal Medicine; ATTEND Internal Medicine
PROC: 4B02XTZ Measurement of Cardiac Defibrillator, External Approach (ICD-10-PCS; principal; 2018-06-09)
DX: I48.1 Persistent atrial fibrillation (principal); I16.1 Hypertensive emergency; N17.9 Acute kidney failure, unspecified; I50.42 Chronic combined systolic (congestive) and diastolic (congestive) heart failure; I13.2 Hypertensive heart and chronic kidney disease with heart failure and with stage 5 chronic kidney disease, or end stage renal disease; I25.5 Ischemic cardiomyopathy; I27.20 Pulmonary hypertension, unspecified; D63.8 Anemia in other chronic diseases classified elsewhere; I45.10 Unspecified right bundle-branch block; E11.65 Type 2 diabetes mellitus with hyperglycemia; D50.9 Iron deficiency anemia, unspecified; D72.821 Monocytosis (symptomatic); E11.22 Type 2 diabetes mellitus with diabetic chronic kidney disease; I25.10 Atherosclerotic heart disease of native coronary artery without angina pectoris; N18.9 Chronic kidney disease, unspecified; I44.0 Atrioventricular block, first degree; E66.9 Obesity, unspecified; E78.00 Pure hypercholesterolemia, unspecified; E78.5 Hyperlipidemia, unspecified; I25.2 Old myocardial infarction; Z79.01 Long term (current) use of anticoagulants; Z79.82 Long term (current) use of aspirin; Z86.79 Personal history of other diseases of the circulatory system; Z95.0 Presence of cardiac pacemaker; Z79.4 Long term (current) use of insulin; Z91.14 Patient's other noncompliance with medication regimen; Z79.899 Other long term (current) drug therapy; Z71.3 Dietary counseling and surveillance
CPT/HCPCS: 36415; 71045; 80048; 80061; 80305; 82550; 82553; 82962; 83036; 83735; 83880; 84100; 84443; 84484; 85379; 93005; 93970; 94640; 96372; 96374; 97163; 97166; 99285; J0360; J1650; J1815; J1940; J7620

== ENCOUNTER 2018-06-24 18:07 | Inpatient (IN) | payer MEDICARE, MEDICAID ==
[~2018-06-24] VITALS: Ht 175.3 cm; Wt 103.4 kg
[~2018-06-24 18:07] MED LIST changes: +AMI2 PO; -AMIO100T4 PO; -APIX5TAB PO; -CARV25TA47 MT; +COR12 PO; -HYDR-4135 PO; +HYDR100T26 PO
[2018-06-24] MEDS ORDERED: KETOROLAC 30MG/ML VIAL IV STA (19:20)
[2018-06-24 19:51] LABS: CHLORIDE 101 mEq/L (98-107)
[2018-06-24 20:18] LABS: BASOPHILS % 0.7 % (0.0-2.0); EOSINOPHILS % 1.6 % (0.0-5.0); HEMATOCRIT. 39.4 % (42.0-52.0); LYMPHOCYTES % 19.3 % (20.0-50.0); MEAN PLATELET VOLUME 9.6 fl (7.4-10.4); MONOCYTES % 10.1 % (2.0-8.0); NEUTROPHILS % 68.3 % (40.0-76.0); PLATELET 175 x1000/uL (130-400); RED BLOOD CELL COUNT 4.99 mill/uL (4.7-6.1); RED CELL DISTRIBUTION WIDTH 16.4 % (11.6-14.6)
[2018-06-24] MEDS ORDERED: HYDRALAZINE 20MG/ML VIAL IV ONE ×2 (22:45→23:45)
[2018-06-25] MEDS ORDERED: ONDANSETRON HCL 4MG/2ML INJ IV PRN (00:30)
[2018-06-25] MEDS ORDERED: MAGNESIUM/ALUMINUM HYDROXIDE/SIMETHICONE 30ML UDC PO PRN (00:30)
[2018-06-25] MEDS ORDERED: ENOXAPARIN 40MG/0.4ML SYR SUBCUT SCH (00:30)
[2018-06-25] MEDS ORDERED: IPRATROPIUM/ALBUTEROL 0.5-3(2.5)MG/3ML NEB INH PRN (00:30)
[2018-06-25] MEDS ORDERED: ACETAMINOPHEN 325MG TABLET PO PRN (00:30)
[2018-06-25] MEDS: CLONIDINE 0.1MG TABLET PO PRN ×2 (01:05→06:13)
[2018-06-25 07:51] LABS: CREATINE KINASE MB FRACTION 2.5 ng/mL (0.5-3.6)
[2018-06-25] MEDS: INSULIN LISPRO (HIGH DOSE) 100 UNITS/ML SUBCUT SCH ×2 (13:15→21:49)
[2018-06-25] MEDS ORDERED: DEXTROSE 50% WATER 50ML SYRINGE IV PRN (13:45)
[2018-06-25] MEDS: MEXILETINE HCL 150MG CAPSULE PO SCH ×2 (14:00→23:33)
[2018-06-25 14:27] LABS: CREATINE KINASE MB FRACTION 2.5 ng/mL (0.5-3.6)
[2018-06-25] MEDS ORDERED: FUROSEMIDE 40MG/4ML VIAL IVP SCH (15:48)
[2018-06-25] MEDS: ENOXAPARIN 30MG/0.3ML SYR SUBCUT SCH ×2 (15:51→21:48)
[2018-06-25] MEDS ORDERED: ISOSORBIDE DINITRATE 30MG TABLET PO SCH (16:00)
[2018-06-25] MEDS ORDERED: ASPIRIN 81MG TABLET PO SCH (16:00)
[2018-06-25] MEDS: BLOOD SUGAR DIAGNOSTIC STRIP TEST SCH ×2 (17:30→21:12)
[2018-06-25 19:38] VITALS: BP 182/95
[2018-06-25] MEDS ORDERED: ATORVASTATIN CALCIUM 20MG TABLET PO SCH (21:00)
[2018-06-25] MEDS ORDERED: LATANOPROST 0.005% OPHTH DROPS 2.5ML EACHEYE SCH (21:00)
[2018-06-25 21:08] VITALS: BP 162/81
[2018-06-25] MEDS: ATORVASTATIN CALCIUM 20MG TABLET PO SCH (21:48)
[2018-06-25] MEDS: INSULIN GLARGINE UD 100 UNITS/ML SYR SUBCUT SCH (21:49)
[2018-06-25] MEDS ORDERED: INSULIN GLARGINE UD 100 UNITS/ML SYR SUBCUT SCH (22:00)
[2018-06-25] MEDS: HYDRALAZINE 20MG/ML VIAL IV PRN (23:36)
[2018-06-25] MEDS: LATANOPROST 0.005% OPHTH DROPS 2.5ML EACHEYE SCH (23:36)
[2018-06-26] VITALS (11 sets, daily range): BP systolic 116–197; BP diastolic 53–94
[2018-06-26] MEDS: MEXILETINE HCL 150MG CAPSULE PO SCH ×3 (05:17→21:36)
[2018-06-26] MEDS: HYDRALAZINE 20MG/ML VIAL IV PRN ×3 (07:15→23:40)
[2018-06-26] MEDS: BLOOD SUGAR DIAGNOSTIC STRIP TEST SCH ×4 (07:46→21:39)
[2018-06-26] MEDS: ASPIRIN 81MG TABLET PO SCH (08:16)
[2018-06-26] MEDS: ENOXAPARIN 30MG/0.3ML SYR SUBCUT SCH ×2 (08:17→21:35)
[2018-06-26] MEDS: FUROSEMIDE 40MG/4ML VIAL IVP SCH (08:17)
[2018-06-26] MEDS: INSULIN LISPRO (HIGH DOSE) 100 UNITS/ML SUBCUT SCH ×4 (08:18→21:34)
[2018-06-26] MEDS: ISOSORBIDE DINITRATE 30MG TABLET PO SCH ×3 (08:35→17:48)
[2018-06-26] MEDS ORDERED: FUROSEMIDE 40MG/4ML VIAL IVP SCH (09:00)
[2018-06-26] MEDS ORDERED: ISOSORBIDE DINITRATE 30MG TABLET PO SCH (09:00)
[2018-06-26] MEDS ORDERED: ASPIRIN 81MG TABLET PO SCH (09:00)
[2018-06-26] MEDS: INSULIN GLARGINE UD 100 UNITS/ML SYR SUBCUT SCH ×2 (10:04→22:49)
[2018-06-26 10:28] LABS: BASOPHILS % 0.5 % (0.0-2.0); EOSINOPHILS % 2.1 % (0.0-5.0); HEMATOCRIT. 36.5 % (42.0-52.0); HEMOGLOBIN. 11.8 g/dL (14.0-18.0); LYMPHOCYTES % 17.7 % (20.0-50.0); MEAN CORPUSCULAR HEMOGLOBIN 25.4 pg (28.0-32.0); MEAN CORPUSCULAR VOLUME 78.6 fL (80.0-94.0); MEAN PLATELET VOLUME 9.8 fl (7.4-10.4); NEUTROPHILS % 71.7 % (40.0-76.0); PLATELET 152 x1000/uL (130-400); RED BLOOD CELL COUNT 4.64 mill/uL (4.7-6.1); RED CELL DISTRIBUTION WIDTH 16.5 % (11.6-14.6)
[2018-06-26 15:49] LABS: CLARITY URINE CLEAR (CLEAR); COLOR URINE YELLOW (YELLOW); KETONES URINE NEGATIVE (NEGATIVE); LEUKOCYTE ESTERASE URINE NEGATIVE (NEGATIVE); NITRITE URINE NEGATIVE (NEGATIVE); OCCULT BLOOD URINE NEGATIVE (NEGATIVE); PROTEIN URINE 1+ (NEGATIVE); SPECIFIC GRAVITY URINE 1.012 (1.005-1.030); UROBILINOGEN URINE 0.2 E.U./dL (0.2-1.0)
[2018-06-26] MEDS: LATANOPROST 0.005% OPHTH DROPS 2.5ML EACHEYE SCH (21:38)
[2018-06-26] MEDS: ATORVASTATIN CALCIUM 20MG TABLET PO SCH (21:39)
[2018-06-27] VITALS (13 sets, daily range): BP systolic 129–180; BP diastolic 63–92
[2018-06-27 05:53] LABS: BASOPHILS % 0.3 % (0.0-2.0); EOSINOPHILS % 2.6 % (0.0-5.0); HEMATOCRIT. 33.7 % (42.0-52.0); LYMPHOCYTES % 22.4 % (20.0-50.0); MEAN CORPUSCULAR HEMOGLOBIN 25.5 pg (28.0-32.0); MEAN CORPUSCULAR VOLUME 78.1 fL (80.0-94.0); MEAN PLATELET VOLUME 9.8 fl (7.4-10.4); MONOCYTES % 11.8 % (2.0-8.0); NEUTROPHILS % 62.9 % (40.0-76.0); PLATELET 148 x1000/uL (130-400); RED BLOOD CELL COUNT 4.32 mill/uL (4.7-6.1); RED CELL DISTRIBUTION WIDTH 16.2 % (11.6-14.6)
[2018-06-27] MEDS: MEXILETINE HCL 150MG CAPSULE PO SCH ×3 (06:14→20:21)
[2018-06-27] MEDS: BLOOD SUGAR DIAGNOSTIC STRIP TEST SCH ×4 (07:30→20:24)
[2018-06-27] MEDS: INSULIN LISPRO (HIGH DOSE) 100 UNITS/ML SUBCUT SCH ×4 (08:00→20:23)
[2018-06-27] MEDS: ISOSORBIDE DINITRATE 30MG TABLET PO SCH ×3 (08:56→17:20)
[2018-06-27] MEDS: ENOXAPARIN 30MG/0.3ML SYR SUBCUT SCH ×2 (08:56→20:22)
[2018-06-27] MEDS: FUROSEMIDE 40MG/4ML VIAL IVP SCH (08:56)
[2018-06-27] MEDS: ASPIRIN 81MG TABLET PO SCH (08:56)
[2018-06-27] MEDS: INSULIN GLARGINE UD 100 UNITS/ML SYR SUBCUT SCH (09:23)
[2018-06-27] MEDS: POTASSIUM CHLORIDE 20MEQ/PACKET PO SCH (09:27)
[2018-06-27] MEDS: CLONIDINE 0.1MG TABLET PO PRN (10:51)
[2018-06-27] MEDS: HYDRALAZINE 20MG/ML VIAL IV PRN ×2 (11:39→20:22)
[2018-06-27] MEDS: LATANOPROST 0.005% OPHTH DROPS 2.5ML EACHEYE SCH (20:19)
[2018-06-27] MEDS: ATORVASTATIN CALCIUM 20MG TABLET PO SCH (20:19)
[2018-06-27] MEDS: CARVEDILOL 6.25 MG TABLET PO SCH (20:24)
[2018-06-28] VITALS (13 sets, daily range): BP systolic 102–185; BP diastolic 42–96
[2018-06-28] MEDS: INSULIN GLARGINE UD 100 UNITS/ML SYR SUBCUT SCH ×3 (01:18→21:04)
[2018-06-28] MEDS: MEXILETINE HCL 150MG CAPSULE PO SCH ×3 (05:23→21:02)
[2018-06-28] MEDS: CLONIDINE 0.1MG TABLET PO PRN ×2 (05:23→22:47)
[2018-06-28 07:06] LABS: BASOPHILS % 0.4 % (0.0-2.0); EOSINOPHILS % 2.4 % (0.0-5.0); HEMATOCRIT. 36.1 % (42.0-52.0); HEMOGLOBIN. 11.4 g/dL (14.0-18.0); LYMPHOCYTES % 27.4 % (20.0-50.0); MEAN CORPUSCULAR VOLUME 78.9 fL (80.0-94.0); MEAN PLATELET VOLUME 9.8 fl (7.4-10.4); MONOCYTES % 12.4 % (2.0-8.0); NEUTROPHILS % 57.4 % (40.0-76.0); PLATELET 153 x1000/uL (130-400); RED BLOOD CELL COUNT 4.58 mill/uL (4.7-6.1); RED CELL DISTRIBUTION WIDTH 16.4 % (11.6-14.6)
[2018-06-28 07:53] LABS: PHOSPHORUS 3.3 mg/dL (2.5-4.9)
[2018-06-28] MEDS: BLOOD SUGAR DIAGNOSTIC STRIP TEST SCH ×4 (07:58→21:05)
[2018-06-28] MEDS: INSULIN LISPRO (HIGH DOSE) 100 UNITS/ML SUBCUT SCH ×4 (08:00→21:03)
[2018-06-28] MEDS: POTASSIUM CHLORIDE 20MEQ/PACKET PO SCH (08:23)
[2018-06-28] MEDS: FUROSEMIDE 40MG/4ML VIAL IVP SCH (08:23)
[2018-06-28] MEDS: ENOXAPARIN 30MG/0.3ML SYR SUBCUT SCH ×2 (08:23→21:03)
[2018-06-28] MEDS: CARVEDILOL 6.25 MG TABLET PO SCH ×3 (08:24→21:03)
[2018-06-28] MEDS: ASPIRIN 81MG TABLET PO SCH (08:24)
[2018-06-28] MEDS: ISOSORBIDE DINITRATE 30MG TABLET PO SCH ×3 (09:18→17:34)
[2018-06-28] MEDS: HYDRALAZINE 20MG/ML VIAL IV PRN (10:37)
[2018-06-28] MEDS ORDERED: POTASSIUM CHLORIDE 20MEQ/PACKET PO NR (11:15)
[2018-06-28] MEDS ORDERED: FUROSEMIDE 20MG/2ML VIAL IVP NR (11:15)
[2018-06-28] MEDS ORDERED: ENALAPRIL 2.5MG/2ML VIAL 2ML IV NR (11:15)
[2018-06-28] MEDS: AMLODIPINE 5MG TABLET PO SCH ×2 (11:32→21:02)
[2018-06-28] MEDS ORDERED: MAGNESIUM CITRATE 300ML SOLUTION PO NR (12:00)
[2018-06-28] MEDS: DOCUSATE SODIUM 100MG CAPSULE PO PRN (13:34)
[2018-06-28] MEDS: POLYETHYLENE GLYCOL 3350 (17GM) 1 DOSE PACK PO SCH (15:11)
[2018-06-28] MEDS ORDERED: LACTULOSE 20G/30ML UDC PO NR (16:00)
[2018-06-28] MEDS ORDERED: NA PHOS,M-B/NA PHOS,DI-BA ENEMA 118ML PR NR (16:45)
[2018-06-28] MEDS: ATORVASTATIN CALCIUM 20MG TABLET PO SCH (21:02)
[2018-06-28] MEDS: LATANOPROST 0.005% OPHTH DROPS 2.5ML EACHEYE SCH (21:02)
[2018-06-29] VITALS (14 sets, daily range): BP systolic 133–180; BP diastolic 65–103
[2018-06-29] MEDS: MEXILETINE HCL 150MG CAPSULE PO SCH ×3 (05:26→21:25)
[2018-06-29] MEDS: HYDROCODONE/ACETAMINOPHEN 5/325MG TABLET PO PRN ×3 (06:07→17:40)
[2018-06-29 07:17] LABS: BASOPHILS % 0.3 % (0.0-2.0); EOSINOPHILS % 0.5 % (0.0-5.0); HEMATOCRIT. 36.8 % (42.0-52.0); LYMPHOCYTES % 12.2 % (20.0-50.0); MEAN CORPUSCULAR HEMOGLOBIN 25.6 pg (28.0-32.0); MEAN CORPUSCULAR VOLUME 78.8 fL (80.0-94.0); MEAN PLATELET VOLUME 9.8 fl (7.4-10.4); MONOCYTES % 7.8 % (2.0-8.0); NEUTROPHILS % 79.2 % (40.0-76.0); PLATELET 147 x1000/uL (130-400); RED BLOOD CELL COUNT 4.67 mill/uL (4.7-6.1); RED CELL DISTRIBUTION WIDTH 16.5 % (11.6-14.6)
[2018-06-29] MEDS: BLOOD SUGAR DIAGNOSTIC STRIP TEST SCH ×4 (07:59→21:26)
[2018-06-29] MEDS: INSULIN LISPRO (HIGH DOSE) 100 UNITS/ML SUBCUT SCH ×4 (08:00→21:24)
[2018-06-29] MEDS: ASPIRIN 81MG TABLET PO SCH (08:35)
[2018-06-29] MEDS: ISOSORBIDE DINITRATE 30MG TABLET PO SCH ×3 (08:35→16:11)
[2018-06-29] MEDS: POTASSIUM CHLORIDE 20MEQ/PACKET PO SCH (08:35)
[2018-06-29] MEDS: CARVEDILOL 6.25 MG TABLET PO SCH ×2 (08:36→21:26)
[2018-06-29] MEDS: AMLODIPINE 5MG TABLET PO SCH ×2 (08:37→21:25)
[2018-06-29] MEDS: ENOXAPARIN 30MG/0.3ML SYR SUBCUT SCH ×2 (08:39→21:24)
[2018-06-29] MEDS: POLYETHYLENE GLYCOL 3350 (17GM) 1 DOSE PACK PO SCH (08:46)
[2018-06-29] MEDS: FUROSEMIDE 40MG/4ML VIAL IVP SCH (08:46)
[2018-06-29] MEDS: INSULIN GLARGINE UD 100 UNITS/ML SYR SUBCUT SCH ×2 (09:00→21:24)
[2018-06-29] MEDS: HYDRALAZINE 20MG/ML VIAL IV PRN (10:54)
[2018-06-29] MEDS: CLONIDINE 0.1MG TABLET PO PRN (12:23)
[2018-06-29] MEDS ORDERED: CARVEDILOL 6.25 MG TABLET PO ONE (15:30)
[2018-06-29] MEDS: DOCUSATE SODIUM 100MG CAPSULE PO PRN (17:30)
[2018-06-29] MEDS: LATANOPROST 0.005% OPHTH DROPS 2.5ML EACHEYE SCH (21:24)
[2018-06-29] MEDS: ATORVASTATIN CALCIUM 20MG TABLET PO SCH (21:25)
[2018-06-30] VITALS (9 sets, daily range): BP systolic 114–199; BP diastolic 58–106
[2018-06-30] MEDS: MEXILETINE HCL 150MG CAPSULE PO SCH ×3 (05:29→21:12)
[2018-06-30 06:19] LABS: BASOPHILS % 0.5 % (0.0-2.0); EOSINOPHILS % 1.8 % (0.0-5.0); HEMATOCRIT. 33.8 % (42.0-52.0); HEMOGLOBIN. 10.9 g/dL (14.0-18.0); LYMPHOCYTES % 17.1 % (20.0-50.0); MEAN CORPUSCULAR HEMOGLOBIN 25.5 pg (28.0-32.0); MEAN CORPUSCULAR VOLUME 78.6 fL (80.0-94.0); MEAN PLATELET VOLUME 9.5 fl (7.4-10.4); MONOCYTES % 11.9 % (2.0-8.0); NEUTROPHILS % 68.7 % (40.0-76.0); PLATELET 136 x1000/uL (130-400); RED CELL DISTRIBUTION WIDTH 16.7 % (11.6-14.6)
[2018-06-30] MEDS: BLOOD SUGAR DIAGNOSTIC STRIP TEST SCH ×4 (07:30→21:15)
[2018-06-30] MEDS: INSULIN LISPRO (HIGH DOSE) 100 UNITS/ML SUBCUT SCH ×4 (08:00→21:24)
[2018-06-30] MEDS: ISOSORBIDE DINITRATE 30MG TABLET PO SCH ×3 (09:07→17:35)
[2018-06-30] MEDS: AMLODIPINE 5MG TABLET PO SCH ×2 (09:08→21:11)
[2018-06-30] MEDS: ASPIRIN 81MG TABLET PO SCH (09:08)
[2018-06-30] MEDS: POLYETHYLENE GLYCOL 3350 (17GM) 1 DOSE PACK PO SCH (09:08)
[2018-06-30] MEDS: ENOXAPARIN 30MG/0.3ML SYR SUBCUT SCH ×2 (09:08→21:10)
[2018-06-30] MEDS: DOCUSATE SODIUM 100MG CAPSULE PO PRN (09:08)
[2018-06-30] MEDS: POTASSIUM CHLORIDE 20MEQ/PACKET PO SCH (09:10)
[2018-06-30] MEDS: FUROSEMIDE 40MG/4ML VIAL IVP SCH (09:11)
[2018-06-30] MEDS: CARVEDILOL 6.25 MG TABLET PO SCH ×2 (09:56→21:11)
[2018-06-30] MEDS: INSULIN GLARGINE UD 100 UNITS/ML SYR SUBCUT SCH ×2 (09:57→21:24)
[2018-06-30] MEDS: HYDRALAZINE 20MG/ML VIAL IV PRN (10:36)
[2018-06-30] MEDS: HYDRALAZINE HCL 100MG TABLET PO SCH ×2 (13:31→21:10)
[2018-06-30] MEDS ORDERED: HYDRALAZINE HCL 50MG TABLET PO SCH (14:00)
[2018-06-30] MEDS: ATORVASTATIN CALCIUM 20MG TABLET PO SCH (21:12)
[2018-06-30] MEDS: LATANOPROST 0.005% OPHTH DROPS 2.5ML EACHEYE SCH (21:45)
[2018-07-01] VITALS: BP 170/88
[2018-07-01 04:00] VITALS: BP 126/57
[2018-07-01] MEDS: HYDRALAZINE HCL 100MG TABLET PO SCH ×2 (06:00→14:00)
[2018-07-01] MEDS: MEXILETINE HCL 150MG CAPSULE PO SCH ×2 (06:25→14:13)
[2018-07-01] MEDS: INSULIN LISPRO (HIGH DOSE) 100 UNITS/ML SUBCUT SCH ×3 (06:25→17:47)
[2018-07-01] MEDS: BLOOD SUGAR DIAGNOSTIC STRIP TEST SCH ×3 (06:25→17:39)
[2018-07-01 07:09] LABS: BASOPHILS % 0.5 % (0.0-2.0); EOSINOPHILS % 1.3 % (0.0-5.0); HEMATOCRIT. 33.1 % (42.0-52.0); HEMOGLOBIN. 10.7 g/dL (14.0-18.0); LYMPHOCYTES % 21.6 % (20.0-50.0); MEAN CORPUSCULAR HEMOGLOBIN 25.3 pg (28.0-32.0); MEAN CORPUSCULAR VOLUME 78.5 fL (80.0-94.0); MEAN PLATELET VOLUME 9.8 fl (7.4-10.4); MONOCYTES % 12.5 % (2.0-8.0); NEUTROPHILS % 64.1 % (40.0-76.0); PLATELET 141 x1000/uL (130-400); RED BLOOD CELL COUNT 4.21 mill/uL (4.7-6.1); RED CELL DISTRIBUTION WIDTH 16.6 % (11.6-14.6)
[2018-07-01 08:00] VITALS: BP 113/56
[2018-07-01] MEDS: AMLODIPINE 5MG TABLET PO SCH (09:00)
[2018-07-01] MEDS: POLYETHYLENE GLYCOL 3350 (17GM) 1 DOSE PACK PO SCH (09:32)
[2018-07-01] MEDS: POTASSIUM CHLORIDE 20MEQ/PACKET PO SCH (09:33)
[2018-07-01] MEDS: ENOXAPARIN 30MG/0.3ML SYR SUBCUT SCH (09:34)
[2018-07-01] MEDS: ISOSORBIDE DINITRATE 30MG TABLET PO SCH ×3 (09:34→18:20)
[2018-07-01] MEDS: CARVEDILOL 6.25 MG TABLET PO SCH (09:35)
[2018-07-01] MEDS: ASPIRIN 81MG TABLET PO SCH (09:35)
[2018-07-01] MEDS: FUROSEMIDE 40MG/4ML VIAL IVP SCH (09:36)
[2018-07-01] MEDS: INSULIN GLARGINE UD 100 UNITS/ML SYR SUBCUT SCH (10:12)
[2018-07-01 11:59] VITALS: BP 152/74
[2018-07-01 16:00] VITALS: BP 152/79
[2018-07-01] MEDS ORDERED: LACT10SO7 MT (17:08)
[2018-07-01] MEDS ORDERED: FURO40TA5 MT (17:08)
[2018-07-01] MEDS ORDERED: LANTUSUD SUBCUT (17:08)
[2018-07-01] MEDS ORDERED: TAMS-11 MT (17:08)
[2018-07-01] MEDS ORDERED: AMLO5TAB88 PO (17:08)
[2018-07-01 18:27] VITALS: BP 152/79
== END 2018-07-01 18:56 | disposition home or self-care (01) | DRG 682 ==
LOC: ER 18:07 → 5EST 23:01 → ENRESERV 06-25 10:43 → CANRESERV 06-25 10:43 → ENRESERV 06-25 17:46 → ER 06-25 18:50 → CANBEDREQ 06-25 19:08 → 8WST 06-30 14:59
PROVIDERS: ADMIT Internal Medicine; ATTEND Internal Medicine
DX: N17.9 Acute kidney failure, unspecified (principal); I50.23 Acute on chronic systolic (congestive) heart failure; E43 Unspecified severe protein-calorie malnutrition; I13.0 Hypertensive heart and chronic kidney disease with heart failure and stage 1 through stage 4 chronic kidney disease, or unspecified chronic kidney disease; E87.1 Hypo-osmolality and hyponatremia; I31.3 Pericardial effusion (noninflammatory); I42.0 Dilated cardiomyopathy; E11.65 Type 2 diabetes mellitus with hyperglycemia; N18.3 Chronic kidney disease, stage 3 (moderate); I27.20 Pulmonary hypertension, unspecified; E78.5 Hyperlipidemia, unspecified; E11.22 Type 2 diabetes mellitus with diabetic chronic kidney disease; D64.9 Anemia, unspecified; R33.9 Retention of urine, unspecified; I44.0 Atrioventricular block, first degree; I48.0 Paroxysmal atrial fibrillation; E11.649 Type 2 diabetes mellitus with hypoglycemia without coma; N28.1 Cyst of kidney, acquired; R00.2 Palpitations; E66.9 Obesity, unspecified; I25.10 Atherosclerotic heart disease of native coronary artery without angina pectoris; I25.2 Old myocardial infarction; Z95.810 Presence of automatic (implantable) cardiac defibrillator; Z82.49 Family history of ischemic heart disease and other diseases of the circulatory system; Z68.33 Body mass index [BMI] 33.0-33.9, adult; Z79.899 Other long term (current) drug therapy; Z79.82 Long term (current) use of aspirin; Z71.3 Dietary counseling and surveillance
CPT/HCPCS: 36415; 71045; 74176; 76770; 80048; 82550; 82553; 82962; 83735; 83880; 84100; 84153; 84443; 84484; 93005; 93970; 96372; 96374; 96375; 96376; 99285; J0360; J1650; J1815; J1885; J1940; J3490; J7620; A4315; G0103

== ENCOUNTER 2018-12-14 16:10 | Inpatient (IN) | payer MEDICARE, MEDICAID ==
[~2018-12-14] VITALS: Ht 175.3 cm; Wt 107.0 kg
[~2018-12-14 16:10] MED LIST changes: -AMI2 PO; +APIX2.5T MT; -ASPI-1159 PO; +ASPI-1393 PO; +CARV25TA47 MT; -COR12 PO; -DIGO-26 PO; +INSHUMSS SUBCUT; -POTA20TA82 PO; -SOTA80TA25 PO; +TAMS-11 MT
[2018-12-14] MEDS ORDERED: FUROSEMIDE 40MG/4ML VIAL IV ONE (16:45)
[2018-12-14] MEDS ORDERED: ASPIRIN 81MG TABLET PO ONE (17:00)
[2018-12-14 17:03] LABS: BASOPHILS % 1.2 % (0.0-2.0); EOSINOPHILS % 2.2 % (0.0-5.0); HEMATOCRIT. 36.1 % (42.0-52.0); HEMOGLOBIN. 11.8 g/dL (14.0-18.0); LYMPHOCYTES % 18.6 % (20.0-50.0); MEAN CORPUSCULAR HEMOGLOBIN 25.9 pg (28.0-32.0); MEAN PLATELET VOLUME 9.3 fl (7.4-10.4); MONOCYTES % 6.8 % (2.0-8.0); NEUTROPHILS % 71.2 % (40.0-76.0); PLATELET 149 x1000/uL (130-400); RED BLOOD CELL COUNT 4.56 mill/uL (4.7-6.1); RED CELL DISTRIBUTION WIDTH 15.8 % (11.6-14.6)
[2018-12-14 17:08] LABS: CHLORIDE 104 mEq/L (98-107)
[2018-12-14 17:18] LABS: ETHANOL BLOOD < 10 mg/dL
[2018-12-14] MEDS ORDERED: CLONIDINE 0.1MG TABLET PO ONE (18:00)
[2018-12-14] MEDS ORDERED: INSULIN REGULAR (HUMULIN R) 300UNITS/3ML IV ONE (18:00)
[2018-12-14] MEDS ORDERED: INSULIN REGULAR (HUMULIN R) 300UNITS/3ML SUBCUT ONE (18:00)
[2018-12-14 18:16] LABS: METHADONE URINE SCREEN NEGATIVE (NEGATIVE); OPIATES URINE SCREEN NEGATIVE (NEGATIVE)
[2018-12-14 18:17] LABS: *AMPHETAMINES SCREEN URINE NEGATIVE (NEGATIVE); *BARBITURATES SCREEN URINE NEGATIVE (NEGATIVE); *BENZODIAZEPINES SCREEN URINE NEGATIVE (NEGATIVE); *COCAINE SCREEN URINE NEGATIVE (NEGATIVE); CANNABINOID URINE SCREEN NEGATIVE (NEGATIVE); PHENCYCLIDINE URINE SCREEN NEGATIVE (NEGATIVE)
[2018-12-14] MEDS ORDERED: FUROSEMIDE 40MG/4ML VIAL IV NR (21:30)
[2018-12-14] MEDS ORDERED: ASPIRIN 81MG TABLET PO NR (21:30)
[2018-12-14] MEDS ORDERED: ASPIRIN 81MG TABLET ONE (21:30)
[2018-12-14] MEDS ORDERED: FUROSEMIDE 40MG/4ML VIAL ONE (21:30)
[2018-12-14 22:30] VITALS: BP 167/89
[2018-12-14 22:45] VITALS: BP 167/89
[2018-12-14] MEDS ORDERED: MAGNESIUM/ALUMINUM HYDROXIDE/SIMETHICONE 30ML UDC PO PRN (23:15)
[2018-12-14] MEDS ORDERED: HYDROCODONE/ACETAMINOPHEN 5/325MG TABLET PO PRN (23:15)
[2018-12-14] MEDS ORDERED: ACETAMINOPHEN 325MG TABLET PO PRN (23:15)
[2018-12-14] MEDS ORDERED: ONDANSETRON HCL 4MG/2ML INJ IV PRN (23:15)
[2018-12-14] MEDS ORDERED: ENOXAPARIN 40MG/0.4ML SYR SUBCUT SCH (23:15)
[2018-12-15] VITALS: BP 116/89
[2018-12-15] MEDS ORDERED: DEXTROSE 50% WATER 50ML SYRINGE IV PRN
[2018-12-15 00:39] LABS: CHLORIDE 108 mEq/L (98-107)
[2018-12-15] MEDS ORDERED: DOCU-150 MT (00:40)
[2018-12-15] MEDS ORDERED: FURO40TA5 MT (00:40)
[2018-12-15] MEDS ORDERED: POTA20TA82 MT (00:40)
[2018-12-15] MEDS ORDERED: AMMO140C2 TP (00:40)
[2018-12-15] MEDS ORDERED: LOSA50TA41 MT (00:40)
[2018-12-15] MEDS ORDERED: CARV25TA47 MT (00:45)
[2018-12-15] MEDS: INSULIN GLARGINE UD 100 UNITS/ML SYR SUBCUT SCH ×2 (01:14→22:18)
[2018-12-15 03:22] LABS: CLARITY URINE CLOUDY (CLEAR); COLOR URINE YELLOW (YELLOW); KETONES URINE NEGATIVE (NEGATIVE); LEUKOCYTE ESTERASE URINE NEGATIVE (NEGATIVE); NITRITE URINE NEGATIVE (NEGATIVE); OCCULT BLOOD URINE TRACE (NEGATIVE); PROTEIN URINE 2+ (NEGATIVE)
[2018-12-15 04:00] VITALS: BP 160/86
[2018-12-15] MEDS: BLOOD SUGAR DIAGNOSTIC STRIP TEST SCH ×4 (06:27→21:13)
[2018-12-15] MEDS: INSULIN LISPRO 100 UNITS/ML SUBCUT SCH ×4 (06:27→21:13)
[2018-12-15] MEDS: FUROSEMIDE 40MG/4ML VIAL IV SCH ×2 (06:29→17:24)
[2018-12-15] MEDS: IPRATROPIUM/ALBUTEROL 0.5-3(2.5)MG/3ML NEB NEB PRN (06:30)
[2018-12-15 07:00] LABS: BASOPHILS % 0.7 % (0.0-2.0); EOSINOPHILS % 3.7 % (0.0-5.0); HEMATOCRIT. 34.6 % (42.0-52.0); HEMOGLOBIN. 11.1 g/dL (14.0-18.0); LYMPHOCYTES % 28.5 % (20.0-50.0); MEAN CORPUSCULAR HEMOGLOBIN 25.7 pg (28.0-32.0); MEAN CORPUSCULAR VOLUME 79.9 fL (80.0-94.0); MEAN PLATELET VOLUME 9.9 fl (7.4-10.4); MONOCYTES % 9.3 % (2.0-8.0); NEUTROPHILS % 57.8 % (40.0-76.0); PLATELET 138 x1000/uL (130-400); RED BLOOD CELL COUNT 4.32 mill/uL (4.7-6.1); RED CELL DISTRIBUTION WIDTH 16.1 % (11.6-14.6)
[2018-12-15 07:06] LABS: CREATINE KINASE MB FRACTION 2.6 ng/mL (0.5-3.6)
[2018-12-15 08:00] VITALS: BP 181/103
[2018-12-15] MEDS ORDERED: ENOXAPARIN 30MG/0.3ML SYR SUBCUT SCH (09:00)
[2018-12-15] MEDS: CLONIDINE 0.1MG TABLET PO PRN (09:08)
[2018-12-15] MEDS: ASPIRIN 81MG EC TABLET PO SCH (09:08)
[2018-12-15 12:00] VITALS: BP 165/86
[2018-12-15] MEDS: HYDRALAZINE HCL 50MG TABLET PO SCH ×2 (14:20→22:21)
[2018-12-15] MEDS: LOSARTAN POTASSIUM 50 MG TABLET PO SCH (14:20)
[2018-12-15 16:00] VITALS: BP 161/97
[2018-12-15] MEDS: ISOSORBIDE MONONITRATE 30MG TABLET SR 24HR PO SCH (17:06)
[2018-12-15] MEDS: APIXABAN 5 MG TABLET PO SCH (17:06)
[2018-12-15 18:01] LABS: CREATINE KINASE MB FRACTION 2.2 ng/mL (0.5-3.6)
[2018-12-15 20:00] VITALS: BP 154/77
[2018-12-15] MEDS: CARVEDILOL 12.5MG TABLET PO SCH (21:12)
[2018-12-16] VITALS (7 sets, daily range): BP systolic 124–171; BP diastolic 72–103
[2018-12-16] MEDS: MEXILETINE HCL 150MG CAPSULE PO SCH ×4 (00:36→22:24)
[2018-12-16] MEDS: HYDRALAZINE HCL 50MG TABLET PO SCH ×3 (05:51→22:24)
[2018-12-16] MEDS: BLOOD SUGAR DIAGNOSTIC STRIP TEST SCH ×4 (06:00→21:00)
[2018-12-16] MEDS: INSULIN LISPRO 100 UNITS/ML SUBCUT SCH ×4 (06:16→22:52)
[2018-12-16] MEDS: FUROSEMIDE 40MG/4ML VIAL IV SCH ×2 (06:49→17:33)
[2018-12-16 06:56] LABS: BASOPHILS % 0.3 % (0.0-2.0); EOSINOPHILS % 3.4 % (0.0-5.0); HEMATOCRIT. 33.5 % (42.0-52.0); LYMPHOCYTES % 26.2 % (20.0-50.0); MEAN CORPUSCULAR VOLUME 79.2 fL (80.0-94.0); MEAN PLATELET VOLUME 9.6 fl (7.4-10.4); MONOCYTES % 9.2 % (2.0-8.0); NEUTROPHILS % 60.9 % (40.0-76.0); PLATELET 126 x1000/uL (130-400); RED BLOOD CELL COUNT 4.22 mill/uL (4.7-6.1); RED CELL DISTRIBUTION WIDTH 16.3 % (11.6-14.6)
[2018-12-16 07:04] LABS: CHLORIDE 108 mEq/L (98-107)
[2018-12-16] MEDS: CARVEDILOL 12.5MG TABLET PO SCH ×2 (09:00→21:00)
[2018-12-16] MEDS: LOSARTAN POTASSIUM 50 MG TABLET PO SCH ×2 (09:13→22:25)
[2018-12-16] MEDS: ASPIRIN 81MG EC TABLET PO SCH (09:13)
[2018-12-16] MEDS: ISOSORBIDE MONONITRATE 30MG TABLET SR 24HR PO SCH (09:13)
[2018-12-16] MEDS: APIXABAN 5 MG TABLET PO SCH ×2 (09:13→17:33)
[2018-12-16] MEDS ORDERED: POTASSIUM CHLORIDE 20MEQ TABLET SR PO NR (09:30)
[2018-12-16] MEDS ORDERED: MAGNESIUM 2 G PREMIX 50 ML IV NR (10:30)
[2018-12-16] MEDS: IPRATROPIUM/ALBUTEROL 0.5-3(2.5)MG/3ML NEB NEB PRN (10:50)
[2018-12-16] MEDS: SPIRONOLACTONE 25MG TABLET PO SCH (14:18)
[2018-12-16] MEDS: POLYETHYLENE GLYCOL 3350 (17GM) 1 DOSE PACK PO SCH (17:54)
[2018-12-16] MEDS: INSULIN GLARGINE UD 100 UNITS/ML SYR SUBCUT SCH (22:53)
[2018-12-17 01:00] VITALS: BP 171/79
[2018-12-17] MEDS: CLONIDINE 0.1MG TABLET PO PRN ×2 (01:16→17:30)
[2018-12-17 04:46] VITALS: BP 131/72
[2018-12-17] MEDS: HYDRALAZINE HCL 50MG TABLET PO SCH ×3 (05:42→21:45)
[2018-12-17] MEDS: MEXILETINE HCL 150MG CAPSULE PO SCH ×3 (05:43→21:49)
[2018-12-17] MEDS: BLOOD SUGAR DIAGNOSTIC STRIP TEST SCH ×4 (06:10→20:38)
[2018-12-17] MEDS: FUROSEMIDE 40MG/4ML VIAL IV SCH ×2 (06:17→17:30)
[2018-12-17] MEDS: INSULIN LISPRO 100 UNITS/ML SUBCUT SCH ×4 (06:26→20:41)
[2018-12-17 08:00] VITALS: BP 156/84
[2018-12-17 08:02] LABS: BASOPHILS % 0.5 % (0.0-2.0); EOSINOPHILS % 3.2 % (0.0-5.0); HEMATOCRIT. 36.3 % (42.0-52.0); HEMOGLOBIN. 11.8 g/dL (14.0-18.0); LYMPHOCYTES % 29.4 % (20.0-50.0); MEAN CORPUSCULAR HEMOGLOBIN 25.9 pg (28.0-32.0); MEAN CORPUSCULAR VOLUME 79.7 fL (80.0-94.0); MEAN PLATELET VOLUME 9.9 fl (7.4-10.4); MONOCYTES % 9.2 % (2.0-8.0); NEUTROPHILS % 57.7 % (40.0-76.0); PLATELET 147 x1000/uL (130-400); RED BLOOD CELL COUNT 4.56 mill/uL (4.7-6.1); RED CELL DISTRIBUTION WIDTH 16.6 % (11.6-14.6)
[2018-12-17 08:05] LABS: CHLORIDE 107 mEq/L (98-107)
[2018-12-17] MEDS: ISOSORBIDE MONONITRATE 30MG TABLET SR 24HR PO SCH (09:12)
[2018-12-17] MEDS: POLYETHYLENE GLYCOL 3350 (17GM) 1 DOSE PACK PO SCH (09:12)
[2018-12-17] MEDS: ASPIRIN 81MG EC TABLET PO SCH (09:13)
[2018-12-17] MEDS: LOSARTAN POTASSIUM 50 MG TABLET PO SCH ×2 (09:13→20:38)
[2018-12-17] MEDS: SPIRONOLACTONE 25MG TABLET PO SCH (09:13)
[2018-12-17] MEDS: POTASSIUM CHLORIDE 20MEQ TABLET SR PO SCH (09:13)
[2018-12-17] MEDS: CARVEDILOL 12.5MG TABLET PO SCH ×2 (09:13→20:38)
[2018-12-17 12:00] VITALS: BP 141/81
[2018-12-17 16:00] VITALS: BP 162/93
[2018-12-17 20:00] VITALS: BP 144/79
[2018-12-17] MEDS: INSULIN GLARGINE UD 100 UNITS/ML SYR SUBCUT SCH (21:49)
[2018-12-18] VITALS: BP 142/74
[2018-12-18 04:00] VITALS: BP 140/90
[2018-12-18] MEDS: HYDRALAZINE HCL 50MG TABLET PO SCH ×3 (06:27→22:42)
[2018-12-18] MEDS: MEXILETINE HCL 150MG CAPSULE PO SCH ×3 (06:28→22:42)
[2018-12-18] MEDS: BLOOD SUGAR DIAGNOSTIC STRIP TEST SCH ×4 (06:29→21:38)
[2018-12-18] MEDS: INSULIN LISPRO 100 UNITS/ML SUBCUT SCH ×4 (06:38→21:20)
[2018-12-18 07:05] LABS: BASOPHILS % 0.8 % (0.0-2.0); HEMOGLOBIN. 12.7 g/dL (14.0-18.0); LYMPHOCYTES % 26.2 % (20.0-50.0); MEAN CORPUSCULAR VOLUME 79.9 fL (80.0-94.0); MEAN PLATELET VOLUME 10.3 fl (7.4-10.4); MONOCYTES % 8.7 % (2.0-8.0); NEUTROPHILS % 61.3 % (40.0-76.0); PLATELET 162 x1000/uL (130-400); RED BLOOD CELL COUNT 4.88 mill/uL (4.7-6.1); RED CELL DISTRIBUTION WIDTH 16.7 % (11.6-14.6)
[2018-12-18 07:24] LABS: CHLORIDE 107 mEq/L (98-107)
[2018-12-18 08:00] VITALS: BP 155/75
[2018-12-18] MEDS: POTASSIUM CHLORIDE 20MEQ TABLET SR PO SCH (09:19)
[2018-12-18] MEDS: ASPIRIN 81MG EC TABLET PO SCH (09:19)
[2018-12-18] MEDS: ISOSORBIDE MONONITRATE 30MG TABLET SR 24HR PO SCH (09:20)
[2018-12-18] MEDS: CARVEDILOL 12.5MG TABLET PO SCH ×2 (09:20→21:37)
[2018-12-18] MEDS: LOSARTAN POTASSIUM 50 MG TABLET PO SCH ×2 (09:20→21:38)
[2018-12-18] MEDS: POLYETHYLENE GLYCOL 3350 (17GM) 1 DOSE PACK PO SCH (09:21)
[2018-12-18] MEDS: FUROSEMIDE 40MG/4ML VIAL IV SCH ×2 (09:21→17:27)
[2018-12-18] MEDS: SPIRONOLACTONE 25MG TABLET PO SCH (09:21)
[2018-12-18 12:00] VITALS: BP 147/78
[2018-12-18 16:00] VITALS: BP 140/73
[2018-12-18 20:00] VITALS: BP 172/97
[2018-12-18] MEDS: INSULIN GLARGINE UD 100 UNITS/ML SYR SUBCUT SCH (21:21)
[2018-12-19] VITALS: BP 158/82
[2018-12-19 04:00] VITALS: BP 136/76
[2018-12-19 06:42] LABS: BASOPHILS % 0.9 % (0.0-2.0); EOSINOPHILS % 3.2 % (0.0-5.0); HEMATOCRIT. 37.4 % (42.0-52.0); HEMOGLOBIN. 12.5 g/dL (14.0-18.0); LYMPHOCYTES % 29.2 % (20.0-50.0); MEAN CORPUSCULAR VOLUME 80.4 fL (80.0-94.0); MONOCYTES % 10.2 % (2.0-8.0); NEUTROPHILS % 56.5 % (40.0-76.0); PLATELET 144 x1000/uL (130-400); RED BLOOD CELL COUNT 4.65 mill/uL (4.7-6.1); RED CELL DISTRIBUTION WIDTH 17.1 % (11.6-14.6)
[2018-12-19] MEDS: HYDRALAZINE HCL 50MG TABLET PO SCH ×3 (06:57→21:37)
[2018-12-19] MEDS: MEXILETINE HCL 150MG CAPSULE PO SCH ×2 (06:58→13:35)
[2018-12-19] MEDS: BLOOD SUGAR DIAGNOSTIC STRIP TEST SCH ×4 (06:58→21:30)
[2018-12-19] MEDS: INSULIN LISPRO 100 UNITS/ML SUBCUT SCH ×4 (06:59→21:40)
[2018-12-19] MEDS: FUROSEMIDE 40MG/4ML VIAL IV SCH (06:59)
[2018-12-19 07:09] LABS: CHLORIDE 108 mEq/L (98-107)
[2018-12-19 08:00] VITALS: BP 116/83
[2018-12-19] MEDS: POTASSIUM CHLORIDE 20MEQ TABLET SR PO SCH (08:22)
[2018-12-19] MEDS: ISOSORBIDE MONONITRATE 30MG TABLET SR 24HR PO SCH (08:22)
[2018-12-19] MEDS: POLYETHYLENE GLYCOL 3350 (17GM) 1 DOSE PACK PO SCH (08:22)
[2018-12-19] MEDS: CARVEDILOL 12.5MG TABLET PO SCH (08:23)
[2018-12-19] MEDS: LOSARTAN POTASSIUM 50 MG TABLET PO SCH ×2 (08:23→21:37)
[2018-12-19] MEDS: SPIRONOLACTONE 25MG TABLET PO SCH (08:23)
[2018-12-19] MEDS: ENOXAPARIN 120MG/0.8ML SYR SUBCUT SCH ×2 (09:50→21:37)
[2018-12-19 12:00] VITALS: BP 159/85
[2018-12-19 16:00] VITALS: BP 166/89
[2018-12-19] MEDS: FUROSEMIDE 100MG/10ML VIAL IV SCH (17:12)
[2018-12-19 20:00] VITALS: BP 167/88
[2018-12-19] MEDS: INSULIN GLARGINE UD 100 UNITS/ML SYR SUBCUT SCH (21:40)
[2018-12-20] VITALS: BP 151/85
[2018-12-20 04:00] VITALS: BP 162/81
[2018-12-20 05:44] LABS: BASOPHILS % 0.6 % (0.0-2.0); EOSINOPHILS % 2.6 % (0.0-5.0); HEMATOCRIT. 37.9 % (42.0-52.0); HEMOGLOBIN. 12.2 g/dL (14.0-18.0); INR 1.1; LYMPHOCYTES % 30.8 % (20.0-50.0); MEAN CORPUSCULAR HEMOGLOBIN 25.9 pg (28.0-32.0); MEAN CORPUSCULAR VOLUME 80.7 fL (80.0-94.0); MEAN PLATELET VOLUME 9.9 fl (7.4-10.4); MONOCYTES % 10.7 % (2.0-8.0); NEUTROPHILS % 55.3 % (40.0-76.0); PLATELET 145 x1000/uL (130-400); PROTHROMBIN TIME 11.4 sec (9.6-11.0); RED CELL DISTRIBUTION WIDTH 16.8 % (11.6-14.6)
[2018-12-20] MEDS: HYDRALAZINE HCL 50MG TABLET PO SCH (06:17)
[2018-12-20] MEDS: INSULIN LISPRO 100 UNITS/ML SUBCUT SCH ×4 (06:17→21:16)
[2018-12-20] MEDS: FUROSEMIDE 100MG/10ML VIAL IV SCH ×2 (06:17→18:30)
[2018-12-20] MEDS: BLOOD SUGAR DIAGNOSTIC STRIP TEST SCH ×4 (06:17→21:05)
[2018-12-20 08:00] VITALS: BP 169/89
[2018-12-20] MEDS: POTASSIUM CHLORIDE 20MEQ TABLET SR PO SCH (08:53)
[2018-12-20] MEDS: ISOSORBIDE MONONITRATE 30MG TABLET SR 24HR PO SCH (09:00)
[2018-12-20] MEDS: SPIRONOLACTONE 25MG TABLET PO SCH (09:01)
[2018-12-20] MEDS: POLYETHYLENE GLYCOL 3350 (17GM) 1 DOSE PACK PO SCH (09:02)
[2018-12-20] MEDS: ENOXAPARIN 120MG/0.8ML SYR SUBCUT SCH ×2 (09:02→21:06)
[2018-12-20] MEDS: LOSARTAN POTASSIUM 50 MG TABLET PO SCH ×2 (09:03→21:05)
[2018-12-20 12:00] VITALS: BP 156/77
[2018-12-20] MEDS: MEXILETINE HCL 150MG CAPSULE PO SCH ×2 (13:33→22:08)
[2018-12-20] MEDS: CARVEDILOL 12.5MG TABLET PO SCH ×2 (13:34→20:53)
[2018-12-20] MEDS: HYDRALAZINE HCL 100MG TABLET PO SCH ×2 (13:34→21:05)
[2018-12-20 16:00] VITALS: BP 143/73
[2018-12-20 20:00] VITALS: BP 156/90
[2018-12-20] MEDS: INSULIN GLARGINE UD 100 UNITS/ML SYR SUBCUT SCH (22:18)
[2018-12-21 01:34] VITALS: BP 154/86
[2018-12-21 04:00] VITALS: BP 148/77
[2018-12-21] MEDS: HYDRALAZINE HCL 100MG TABLET PO SCH ×5 (06:24→22:23)
[2018-12-21] MEDS: FUROSEMIDE 100MG/10ML VIAL IV SCH ×2 (06:25→16:49)
[2018-12-21] MEDS: MEXILETINE HCL 150MG CAPSULE PO SCH ×3 (06:25→21:37)
[2018-12-21] MEDS: BLOOD SUGAR DIAGNOSTIC STRIP TEST SCH ×4 (06:25→21:37)
[2018-12-21] MEDS: INSULIN LISPRO 100 UNITS/ML SUBCUT SCH ×4 (06:25→21:50)
[2018-12-21 07:36] LABS: BASOPHILS % 0.6 % (0.0-2.0); EOSINOPHILS % 2.8 % (0.0-5.0); HEMATOCRIT. 36.3 % (42.0-52.0); HEMOGLOBIN. 11.8 g/dL (14.0-18.0); MEAN CORPUSCULAR HEMOGLOBIN 25.9 pg (28.0-32.0); MEAN CORPUSCULAR VOLUME 79.6 fL (80.0-94.0); MONOCYTES % 12.4 % (2.0-8.0); NEUTROPHILS % 51.2 % (40.0-76.0); PLATELET 142 x1000/uL (130-400); RED BLOOD CELL COUNT 4.56 mill/uL (4.7-6.1); RED CELL DISTRIBUTION WIDTH 16.7 % (11.6-14.6)
[2018-12-21 08:00] VITALS: BP 117/71
[2018-12-21] MEDS: CARVEDILOL 12.5MG TABLET PO SCH ×2 (09:00→21:36)
[2018-12-21] MEDS: SPIRONOLACTONE 25MG TABLET PO SCH (10:03)
[2018-12-21] MEDS: POTASSIUM CHLORIDE 20MEQ TABLET SR PO SCH (10:03)
[2018-12-21] MEDS: LOSARTAN POTASSIUM 50 MG TABLET PO SCH ×3 (10:03→21:52)
[2018-12-21] MEDS: POLYETHYLENE GLYCOL 3350 (17GM) 1 DOSE PACK PO SCH (10:04)
[2018-12-21] MEDS: ISOSORBIDE MONONITRATE 30MG TABLET SR 24HR PO SCH (10:04)
[2018-12-21] MEDS: ENOXAPARIN 120MG/0.8ML SYR SUBCUT SCH ×2 (10:05→21:35)
[2018-12-21 12:00] VITALS: BP 145/82
[2018-12-21 16:00] VITALS: BP 139/88
[2018-12-21 20:00] VITALS: BP 152/75
[2018-12-21] MEDS: INSULIN GLARGINE UD 100 UNITS/ML SYR SUBCUT SCH (21:51)
[2018-12-22] VITALS: BP 162/75
[2018-12-22 04:00] VITALS: BP 134/64
[2018-12-22] MEDS: BLOOD SUGAR DIAGNOSTIC STRIP TEST SCH ×4 (06:48→21:17)
[2018-12-22] MEDS: HYDRALAZINE HCL 100MG TABLET PO SCH ×3 (06:48→21:17)
[2018-12-22] MEDS: MEXILETINE HCL 150MG CAPSULE PO SCH ×3 (06:48→21:17)
[2018-12-22] MEDS: FUROSEMIDE 100MG/10ML VIAL IV SCH ×2 (06:49→17:42)
[2018-12-22] MEDS: INSULIN LISPRO 100 UNITS/ML SUBCUT SCH ×4 (06:50→21:20)
[2018-12-22 07:40] LABS: BASOPHILS % 0.6 % (0.0-2.0); EOSINOPHILS % 2.3 % (0.0-5.0); HEMATOCRIT. 36.1 % (42.0-52.0); HEMOGLOBIN. 11.8 g/dL (14.0-18.0); LYMPHOCYTES % 31.2 % (20.0-50.0); MEAN CORPUSCULAR HEMOGLOBIN 25.7 pg (28.0-32.0); MEAN CORPUSCULAR VOLUME 78.7 fL (80.0-94.0); MEAN PLATELET VOLUME 10.1 fl (7.4-10.4); MONOCYTES % 13.1 % (2.0-8.0); NEUTROPHILS % 52.8 % (40.0-76.0); PLATELET 151 x1000/uL (130-400); RED BLOOD CELL COUNT 4.59 mill/uL (4.7-6.1); RED CELL DISTRIBUTION WIDTH 16.8 % (11.6-14.6)
[2018-12-22 07:55] LABS: INR 1.1; PROTHROMBIN TIME 11.5 sec (9.6-11.0)
[2018-12-22 08:00] VITALS: BP 152/77
[2018-12-22] MEDS: ISOSORBIDE MONONITRATE 30MG TABLET SR 24HR PO SCH (08:53)
[2018-12-22] MEDS: POTASSIUM CHLORIDE 20MEQ TABLET SR PO SCH (08:53)
[2018-12-22] MEDS: LOSARTAN POTASSIUM 50 MG TABLET PO SCH ×2 (08:54→21:18)
[2018-12-22] MEDS: CARVEDILOL 12.5MG TABLET PO SCH ×2 (08:54→21:00)
[2018-12-22] MEDS: SPIRONOLACTONE 25MG TABLET PO SCH (08:54)
[2018-12-22] MEDS: POLYETHYLENE GLYCOL 3350 (17GM) 1 DOSE PACK PO SCH (08:55)
[2018-12-22 13:00] VITALS: BP 125/72
[2018-12-22 16:00] VITALS: BP 156/82
[2018-12-22] MEDS: INSULIN GLARGINE UD 100 UNITS/ML SYR SUBCUT SCH (21:20)
[2018-12-23] VITALS: BP 146/74
[2018-12-23 04:00] VITALS: BP 148/77
[2018-12-23] MEDS: HYDRALAZINE HCL 100MG TABLET PO SCH ×2 (05:46→13:53)
[2018-12-23] MEDS: MEXILETINE HCL 150MG CAPSULE PO SCH ×2 (05:49→13:52)
[2018-12-23] MEDS: BLOOD SUGAR DIAGNOSTIC STRIP TEST SCH ×2 (06:04→11:26)
[2018-12-23] MEDS: FUROSEMIDE 100MG/10ML VIAL IV SCH (06:20)
[2018-12-23] MEDS: INSULIN LISPRO 100 UNITS/ML SUBCUT SCH ×2 (06:21→12:36)
[2018-12-23 08:00] VITALS: BP_SYST 105; BP_SYST 136; BP_DIAS 65; BP_DIAS 70
[2018-12-23 08:04] LABS: BASOPHILS % 0.4 % (0.0-2.0); EOSINOPHILS % 2.8 % (0.0-5.0); HEMATOCRIT. 37.5 % (42.0-52.0); HEMOGLOBIN. 12.3 g/dL (14.0-18.0); LYMPHOCYTES % 29.1 % (20.0-50.0); MEAN CORPUSCULAR VOLUME 79.5 fL (80.0-94.0); MEAN PLATELET VOLUME 9.9 fl (7.4-10.4); NEUTROPHILS % 54.7 % (40.0-76.0); PLATELET 153 x1000/uL (130-400); RED BLOOD CELL COUNT 4.72 mill/uL (4.7-6.1)
[2018-12-23] MEDS: ISOSORBIDE MONONITRATE 30MG TABLET SR 24HR PO SCH (08:55)
[2018-12-23] MEDS: SPIRONOLACTONE 25MG TABLET PO SCH (08:55)
[2018-12-23] MEDS: POTASSIUM CHLORIDE 20MEQ TABLET SR PO SCH (08:55)
[2018-12-23] MEDS: CARVEDILOL 12.5MG TABLET PO SCH (08:55)
[2018-12-23] MEDS: LOSARTAN POTASSIUM 50 MG TABLET PO SCH (08:55)
[2018-12-23] MEDS: POLYETHYLENE GLYCOL 3350 (17GM) 1 DOSE PACK PO SCH (08:56)
[2018-12-23 12:00] VITALS: BP 152/82
[2018-12-23 14:29] VITALS: BP 152/82
== END 2018-12-23 16:17 | disposition home or self-care (01) | DRG 291 ==
LOC: ER 16:10 → 5WST 18:09 → EDBEDREQ 18:13 → ENRESERV 20:08
PROVIDERS: ADMIT Internal Medicine; ATTEND Internal Medicine
PROC: 4B02XTZ Measurement of Cardiac Defibrillator, External Approach (ICD-10-PCS; 2018-12-20)
PROC: 0W9B3ZZ Drainage of Left Pleural Cavity, Percutaneous Approach (ICD-10-PCS; principal; 2018-12-22)
DX: I13.0 Hypertensive heart and chronic kidney disease with heart failure and stage 1 through stage 4 chronic kidney disease, or unspecified chronic kidney disease (principal); I50.43 Acute on chronic combined systolic (congestive) and diastolic (congestive) heart failure; J96.00 Acute respiratory failure, unspecified whether with hypoxia or hypercapnia; I31.3 Pericardial effusion (noninflammatory); J91.8 Pleural effusion in other conditions classified elsewhere; I42.0 Dilated cardiomyopathy; D50.9 Iron deficiency anemia, unspecified; E11.22 Type 2 diabetes mellitus with diabetic chronic kidney disease; I48.0 Paroxysmal atrial fibrillation; J44.9 Chronic obstructive pulmonary disease, unspecified; N18.9 Chronic kidney disease, unspecified; E78.00 Pure hypercholesterolemia, unspecified; F17.200 Nicotine dependence, unspecified, uncomplicated; I25.2 Old myocardial infarction; Z95.810 Presence of automatic (implantable) cardiac defibrillator; Z79.01 Long term (current) use of anticoagulants; Z79.4 Long term (current) use of insulin; Z79.82 Long term (current) use of aspirin; Z79.899 Other long term (current) drug therapy; Z82.49 Family history of ischemic heart disease and other diseases of the circulatory system
CPT/HCPCS: 32555; 36415; 71045; 76604; 80048; 80061; 80305; 80320; 81003; 82010; 82465; 82550; 82553; 82962; 83615; 83735; 83880; 83986; 84443; 84478; 84484; 88108; 88312; 93005; 93306; 93970; 94640; 99285; C1893; J1650; J1815; J1940; J3475; J7040; J7620; G0480

== ENCOUNTER 2019-03-29 22:56 | Emergency (ER) | payer MEDICAID, MEDICARE, OTHER ==
[~2019-03-29] VITALS: Ht 177.8 cm; Wt 136.0 kg
[~2019-03-29 22:56] MED LIST changes: +AMMO140C2 TP; +DOCU-150 MT; +LOSA50TA41 MT; +POTA20TA82 MT
[2019-03-29] MEDS ORDERED: NITROGLYCERIN 0.4MG TABLET SL SL STA (23:26)
[2019-03-29] MEDS ORDERED: FUROSEMIDE 40MG/4ML VIAL IV ONE (23:30)
[2019-03-29] MEDS ORDERED: ENALAPRIL 2.5MG/2ML VIAL 2ML IV ONE (23:30)
[2019-03-29] MEDS ORDERED: ENALAPRIL 1.25MG/ML VIAL 1ML IV ONE (23:45)
[2019-03-30 00:01] LABS: BASOPHILS % 0.6 % (0.0-2.0); EOSINOPHILS % 1.1 % (0.0-5.0); HEMATOCRIT. 37.7 % (42.0-52.0); HEMOGLOBIN. 12.2 g/dL (14.0-18.0); LYMPHOCYTES % 16.8 % (20.0-50.0); MEAN CORPUSCULAR HEMOGLOBIN 25.5 pg (28.0-32.0); MEAN CORPUSCULAR VOLUME 78.7 fL (80.0-94.0); MEAN PLATELET VOLUME 9.4 fl (7.4-10.4); MONOCYTES % 9.6 % (2.0-8.0); NEUTROPHILS % 71.9 % (40.0-76.0); PLATELET 179 x1000/uL (130-400); RED BLOOD CELL COUNT 4.78 mill/uL (4.7-6.1); RED CELL DISTRIBUTION WIDTH 15.6 % (11.6-14.6)
[2019-03-30 00:11] LABS: CHLORIDE 107 mEq/L (98-107)
[2019-03-30 07:05] VITALS: BP 136/98
== END 2019-03-30 07:13 | disposition short-term general hospital (02) ==
LOC: ER 23:04 → CANBEDREQ 03-30 08:53
DX: I11.0 Hypertensive heart disease with heart failure (principal); I50.9 Heart failure, unspecified; J90 Pleural effusion, not elsewhere classified; E78.00 Pure hypercholesterolemia, unspecified; E11.9 Type 2 diabetes mellitus without complications; Z79.82 Long term (current) use of aspirin; Z79.4 Long term (current) use of insulin; Z79.899 Other long term (current) drug therapy
CPT/HCPCS: 36415; 71045; 80053; 82962; 83880; 84484; 85025; 93005; 96374; 99285; J1940; J3490

== ENCOUNTER 2019-06-14 09:29 | Inpatient (IN) | payer OTHER, MEDICAID ==
[~2019-06-14] VITALS: Ht 177.8 cm; Wt 119.3 kg
[~2019-06-14 09:29] MED LIST changes: -ASPI-1393 PO; +ASPI-1497 PO
[2019-06-14 10:12] LABS: BASOPHILS % 0.9 % (0.0-2.0); EOSINOPHILS % 1.6 % (0.0-5.0); HEMOGLOBIN. 11.9 g/dL (14.0-18.0); LYMPHOCYTES % 20.5 % (20.0-50.0); MEAN CORPUSCULAR VOLUME 80.9 fL (80.0-94.0); MEAN PLATELET VOLUME 9.3 fl (7.4-10.4); MONOCYTES % 10.7 % (2.0-8.0); NEUTROPHILS % 66.3 % (40.0-76.0); PLATELET 156 x1000/uL (130-400); RED BLOOD CELL COUNT 4.57 mill/uL (4.7-6.1); RED CELL DISTRIBUTION WIDTH 19.2 % (11.6-14.6)
[2019-06-14 10:21] LABS: CHLORIDE 108 mEq/L (98-107)
[2019-06-14] MEDS ORDERED: ENALAPRIL 2.5MG/2ML VIAL 2ML IV ONE (12:00)
[2019-06-14] MEDS ORDERED: FUROSEMIDE 40MG/4ML VIAL IVP ONE (12:00)
[2019-06-14 12:11] LABS: BG BASE EXCESS -2.8 mmol/L (-2.0-2.0); BG BILEVEL POS AIRWAY PRESSURE 16/5; BG CARBOXYHEMOGLOBIN 0.3 % (0.5-1.5); BG DEOXYHEMOGLOBIN 0.8 % (0.0-5.0); BG FRACTION INSPIRED OXYGEN 50; BG HCO3 ACT 22.6 mmol/L (22.0-26.0); BG METHEMOGLOBIN 0.3 % (0.0-1.5); BG OXYGEN SATURATION 99.2 % (92.0-98.5); BG OXYHEMOGLOBIN 98.6 % (94.0-97.0); BG PCO2 41.7 mmHg (35.0-45.0); BG PH 7.352 (7.350-7.450); BG PO2 229.1 mmHg (75.0-100.0); BG SAMPLE SITE RIGHT RADIAL; BG TOTAL HEMOGLOBIN 12.4 g/dL (12.0-18.0); BG VENT MODE MASK - BIPAP; BG VENT RATE 20 set
[2019-06-14] MEDS ORDERED: ONDANSETRON HCL 4MG/2ML INJ IV PRN (12:15)
[2019-06-14] MEDS ORDERED: IPRATROPIUM/ALBUTEROL 0.5-3(2.5)MG/3ML NEB NEB PRN (12:15)
[2019-06-14] MEDS ORDERED: MORPHINE SULFATE 2 MG/ML CPJ (NOT FOR IM USE) IV PRN (12:15)
[2019-06-14] MEDS ORDERED: CLONIDINE 0.1MG TABLET PO PRN (12:15)
[2019-06-14] MEDS ORDERED: DOCUSATE SODIUM 100MG CAPSULE PO PRN (12:15)
[2019-06-14] MEDS ORDERED: MAGNESIUM/ALUMINUM HYDROXIDE/SIMETHICONE 30ML UDC PO PRN (12:15)
[2019-06-14] MEDS ORDERED: GUAIFENESIN 200MG/10ML SUGAR FREE UDC PO PRN (12:15)
[2019-06-14] MEDS ORDERED: HYDROCODONE/ACETAMINOPHEN 5/325MG TABLET PO PRN (12:15)
[2019-06-14] MEDS ORDERED: ACETAMINOPHEN 325MG TABLET PO PRN (12:15)
[2019-06-14] MEDS ORDERED: POTASSIUM CHLORIDE 20MEQ TABLET SR PO SCH (12:15)
[2019-06-14] MEDS ORDERED: TAMSULOSIN HCL 0.4MG SR CAPSULE PO NR (12:30)
[2019-06-14] MEDS ORDERED: ENALAPRIL 1.25MG/ML VIAL 1ML IV ONE (12:30)
[2019-06-14] MEDS ORDERED: FUROSEMIDE 40MG/4ML VIAL IV SCH (17:00)
[2019-06-14 20:00] VITALS: BP 146/104
[2019-06-14] MEDS ORDERED: DIGOXIN 500MCG/2ML AMP IV SCH (20:00)
[2019-06-14] MEDS: APIXABAN 5 MG TABLET PO SCH (21:11)
[2019-06-14] MEDS: FUROSEMIDE 100MG/10ML VIAL IV SCH (21:11)
[2019-06-14] MEDS: LISINOPRIL 20MG TABLET PO SCH (21:12)
[2019-06-14] MEDS: NITROGLYCERIN OINT 1GM/INCH UDPKT TD SCH (21:12)
[2019-06-14] MEDS: CARVEDILOL 12.5MG TABLET PO SCH (21:13)
[2019-06-14] MEDS: AMLODIPINE 5MG TABLET PO SCH (21:13)
[2019-06-14 21:28] LABS: CREATINE KINASE MB FRACTION 2.3 ng/mL (0.5-3.6)
[2019-06-14 21:29] LABS: CREATINE KINASE 91 IU/L (39-308)
[2019-06-14] MEDS ORDERED: DEXTROSE 50% WATER 50ML SYRINGE IV PRN (22:00)
[2019-06-14] MEDS ORDERED: INSULIN GLARGINE UD 100 UNITS/ML SYR SUBCUT SCH ×2 (22:00)
[2019-06-15] VITALS: BP 165/112
[2019-06-15] MEDS: NITROGLYCERIN OINT 1GM/INCH UDPKT TD SCH ×3 (02:02→15:06)
[2019-06-15 04:00] VITALS: BP 152/83
[2019-06-15 06:47] LABS: BASOPHILS % 0.8 % (0.0-2.0); EOSINOPHILS % 1.9 % (0.0-5.0); HEMATOCRIT. 38.5 % (42.0-52.0); HEMOGLOBIN. 12.3 g/dL (14.0-18.0); LYMPHOCYTES % 21.9 % (20.0-50.0); MEAN CORPUSCULAR HEMOGLOBIN 25.8 pg (28.0-32.0); MEAN CORPUSCULAR VOLUME 80.4 fL (80.0-94.0); MEAN PLATELET VOLUME 9.6 fl (7.4-10.4); MONOCYTES % 10.8 % (2.0-8.0); NEUTROPHILS % 64.6 % (40.0-76.0); PLATELET 154 x1000/uL (130-400); RED BLOOD CELL COUNT 4.78 mill/uL (4.7-6.1)
[2019-06-15 06:52] LABS: CHLORIDE 110 mEq/L (98-107)
[2019-06-15] MEDS: BLOOD SUGAR DIAGNOSTIC STRIP TEST SCH ×2 (06:56→12:40)
[2019-06-15 06:58] LABS: LDL CHOLESTEROL 65 mg/dL (5-100)
[2019-06-15 07:00] LABS: HDL CHOLESTEROL 31 mg/dL (40-59)
[2019-06-15 08:00] VITALS: BP 136/85
[2019-06-15] MEDS: INSULIN LISPRO 100 UNITS/ML SUBCUT SCH ×2 (08:09→13:10)
[2019-06-15] MEDS ORDERED: TAMSULOSIN HCL 0.4MG SR CAPSULE PO SCH (09:00)
[2019-06-15] MEDS ORDERED: ISOSORBIDE MONONITRATE 60MG TABLET SR 24HR PO SCH (09:00)
[2019-06-15] MEDS: LISINOPRIL 20MG TABLET PO SCH (09:33)
[2019-06-15] MEDS: FUROSEMIDE 100MG/10ML VIAL IV SCH (09:33)
[2019-06-15] MEDS: AMLODIPINE 5MG TABLET PO SCH (09:34)
[2019-06-15] MEDS: APIXABAN 5 MG TABLET PO SCH (09:34)
[2019-06-15] MEDS: CARVEDILOL 12.5MG TABLET PO SCH (09:34)
[2019-06-15 10:56] VITALS: BP 136/85
[2019-06-15 12:00] VITALS: BP 137/90
== END 2019-06-15 17:43 | disposition short-term general hospital (02) | DRG 189 ==
LOC: ER 09:29 → 7WST 11:58 → EDBEDREQSVC 16:42 → ENRESERV 16:44
PROVIDERS: ADMIT Hospitalist; ATTEND Hospitalist
PROC: 5A09357 Assistance with Respiratory Ventilation, Less than 24 Consecutive Hours, Continuous Positive Airway Pressure (ICD-10-PCS; principal; 2019-06-14)
PROC: 5A09357 Assistance with Respiratory Ventilation, Less than 24 Consecutive Hours, Continuous Positive Airway Pressure (ICD-10-PCS; 2019-06-14)
DX: J96.21 Acute and chronic respiratory failure with hypoxia (principal); I50.23 Acute on chronic systolic (congestive) heart failure; I13.0 Hypertensive heart and chronic kidney disease with heart failure and stage 1 through stage 4 chronic kidney disease, or unspecified chronic kidney disease; E87.2 Acidosis; I48.19 Other persistent atrial fibrillation; D68.59 Other primary thrombophilia; K86.1 Other chronic pancreatitis; I42.0 Dilated cardiomyopathy; E11.65 Type 2 diabetes mellitus with hyperglycemia; E66.09 Other obesity due to excess calories; E78.5 Hyperlipidemia, unspecified; G47.33 Obstructive sleep apnea (adult) (pediatric); I48.0 Paroxysmal atrial fibrillation; I25.5 Ischemic cardiomyopathy; J44.9 Chronic obstructive pulmonary disease, unspecified; E11.22 Type 2 diabetes mellitus with diabetic chronic kidney disease; N18.9 Chronic kidney disease, unspecified; N40.0 Benign prostatic hyperplasia without lower urinary tract symptoms; Z79.01 Long term (current) use of anticoagulants; Z79.4 Long term (current) use of insulin; Z87.891 Personal history of nicotine dependence; Z90.49 Acquired absence of other specified parts of digestive tract; Z95.810 Presence of automatic (implantable) cardiac defibrillator; Z68.37 Body mass index [BMI] 37.0-37.9, adult; Z79.82 Long term (current) use of aspirin; Z79.899 Other long term (current) drug therapy
CPT/HCPCS: 36415; 36600; 71045; 80053; 80061; 82375; 82550; 82553; 82805; 82962; 83036; 83880; 84484; 85025; 93005; 93306; 93970; 94660; 99291; J1160; J1815; J1940; J3490

== ENCOUNTER 2020-04-19 09:52 | Inpatient (IN) | payer OTHER, MEDICAID ==
[~2020-04-19] VITALS: Ht 175.3 cm; Wt 108.0 kg
[~2020-04-19 09:52] MED LIST changes: +LATA2.5D14 EACHEYE; -LATA2.5D2 EACHEYE
[2020-04-19] MEDS ORDERED: SODIUM CHLORIDE 0.9% 1,000 ML IV ONE (10:45)
[2020-04-19 11:35] LABS: BASOPHILS % 0.8 % (0.0-2.0); EOSINOPHILS % 1.4 % (0.0-5.0); HEMATOCRIT. 35.1 % (42.0-52.0); HEMOGLOBIN. 11.4 g/dL (14.0-18.0); LYMPHOCYTES % 17.4 % (20.0-50.0); MEAN CORPUSCULAR HEMOGLOBIN 25.9 pg (28.0-32.0); MEAN CORPUSCULAR VOLUME 80.1 fL (80.0-94.0); MEAN PLATELET VOLUME 8.6 fl (7.4-10.4); MONOCYTES % 8.4 % (2.0-8.0); PLATELET 141 x1000/uL (130-400); RED BLOOD CELL COUNT 4.39 mill/uL (4.7-6.1); RED CELL DISTRIBUTION WIDTH 15.2 % (11.6-14.6)
[2020-04-19 11:42] LABS: CHLORIDE 109 mEq/L (98-107)
[2020-04-19 11:43] LABS: INR 1.2; PROTHROMBIN TIME 12.3 sec (9.6-11.0)
[2020-04-19 11:49] LABS: BETA HYDROXYBUTYRATE 0.1 mMol/L (0.0-0.3)
[2020-04-19 14:34] LABS: CLARITY URINE CLEAR (CLEAR); COLOR URINE YELLOW (YELLOW); KETONES URINE NEGATIVE (NEGATIVE); LEUKOCYTE ESTERASE URINE NEGATIVE (NEGATIVE); NITRITE URINE NEGATIVE (NEGATIVE); OCCULT BLOOD URINE NEGATIVE (NEGATIVE); PROTEIN URINE NEGATIVE (NEGATIVE); SPECIFIC GRAVITY URINE 1.013 (1.005-1.030); UROBILINOGEN URINE 0.2 E.U./dL (0.2-1.0)
[2020-04-19] MEDS ORDERED: DEXTROSE 50% WATER 50ML SYRINGE IV ONE (14:45)
[2020-04-19] MEDS ORDERED: DEXT 5% WATER 100 ML IV ONE (15:00)
[2020-04-19] MEDS ORDERED: ONDANSETRON HCL 4MG/2ML INJ IV PRN (20:30)
[2020-04-19] MEDS ORDERED: CLONIDINE 0.1MG TABLET PO PRN (20:30)
[2020-04-19] MEDS ORDERED: GUAIFENESIN 200MG/10ML SUGAR FREE UDC PO PRN (20:30)
[2020-04-19] MEDS ORDERED: DIPHENHYDRAMINE 50MG/ML VIAL IV PRN (20:30)
[2020-04-19] MEDS ORDERED: ZOLPIDEM TARTRATE 5MG TABLET PO PRN (20:30)
[2020-04-19] MEDS ORDERED: ACETAMINOPHEN 325MG TABLET PO PRN ×2 (20:30)
[2020-04-19] MEDS ORDERED: DEXTROSE 50% WATER 50ML SYRINGE IV PRN (20:30)
[2020-04-19] MEDS ORDERED: MAGNESIUM/ALUMINUM HYDROXIDE/SIMETHICONE 30ML UDC PO PRN (20:30)
[2020-04-19] MEDS ORDERED: HYDROCODONE/ACETAMINOPHEN 5/325MG TABLET PO PRN (20:30)
[2020-04-19] MEDS ORDERED: CARVEDILOL 12.5MG TABLET PO SCH (21:30)
[2020-04-19] MEDS ORDERED: LISINOPRIL 10MG TABLET PO SCH (21:30)
[2020-04-19] MEDS: BLOOD SUGAR DIAGNOSTIC STRIP TEST SCH (22:16)
[2020-04-19] MEDS: INSULIN LISPRO 100 UNITS/ML SUBCUT SCH (22:22)
[2020-04-19] MEDS: NITROGLYCERIN OINT 1GM/INCH UDPKT TD SCH (22:23)
[2020-04-19] MEDS: FAMOTIDINE 20MG TABLET PO SCH (22:23)
[2020-04-19] MEDS: SODIUM CHLORIDE 0.9% INJ 3ML FLUSH IVF SCH (22:23)
[2020-04-19] MEDS: ENOXAPARIN 80MG/0.8ML SYR SUBCUT SCH (22:45)
[2020-04-20 01:55] VITALS: BP 150/98
[2020-04-20 04:00] VITALS: BP 144/65
[2020-04-20] MEDS: HYDRALAZINE HCL 100MG TABLET PO SCH ×3 (05:32→22:50)
[2020-04-20] MEDS: BLOOD SUGAR DIAGNOSTIC STRIP TEST SCH ×4 (05:33→21:00)
[2020-04-20] MEDS: NITROGLYCERIN OINT 1GM/INCH UDPKT TD SCH ×3 (05:33→22:51)
[2020-04-20] MEDS: INSULIN LISPRO 100 UNITS/ML SUBCUT SCH ×4 (05:38→23:38)
[2020-04-20] MEDS: SODIUM CHLORIDE 0.9% INJ 3ML FLUSH IVF SCH ×3 (05:38→22:57)
[2020-04-20 08:00] VITALS: BP 116/66
[2020-04-20] MEDS: TAMSULOSIN HCL 0.4MG SR CAPSULE PO SCH (10:11)
[2020-04-20] MEDS: FUROSEMIDE 40MG/4ML VIAL IVP SCH (10:11)
[2020-04-20] MEDS: CARVEDILOL 12.5MG TABLET PO SCH ×2 (10:14→22:49)
[2020-04-20 12:00] VITALS: BP 129/76
[2020-04-20 20:00] VITALS: BP 119/79
[2020-04-20] MEDS: MEXILETINE HCL 150MG CAPSULE PO SCH (22:00)
[2020-04-20] MEDS: ATORVASTATIN CALCIUM 20MG TABLET PO SCH (22:49)
[2020-04-20] MEDS: FAMOTIDINE 20MG TABLET PO SCH (22:49)
[2020-04-20] MEDS: ENOXAPARIN 80MG/0.8ML SYR SUBCUT SCH (22:50)
[2020-04-21] VITALS: BP 112/68
[2020-04-21 04:00] VITALS: BP 121/59
[2020-04-21] MEDS: MEXILETINE HCL 150MG CAPSULE PO SCH ×3 (06:00→21:48)
[2020-04-21] MEDS: BLOOD SUGAR DIAGNOSTIC STRIP TEST SCH ×4 (06:46→21:50)
[2020-04-21] MEDS: HYDRALAZINE HCL 100MG TABLET PO SCH ×3 (06:55→21:47)
[2020-04-21] MEDS: NITROGLYCERIN OINT 1GM/INCH UDPKT TD SCH ×3 (06:55→21:49)
[2020-04-21] MEDS: INSULIN LISPRO 100 UNITS/ML SUBCUT SCH ×4 (06:55→21:50)
[2020-04-21] MEDS: SODIUM CHLORIDE 0.9% INJ 3ML FLUSH IVF SCH ×3 (06:56→21:49)
[2020-04-21 08:00] VITALS: BP 114/65
[2020-04-21] MEDS: TAMSULOSIN HCL 0.4MG SR CAPSULE PO SCH (08:29)
[2020-04-21] MEDS: FUROSEMIDE 40MG/4ML VIAL IVP SCH (08:29)
[2020-04-21] MEDS: CARVEDILOL 12.5MG TABLET PO SCH ×2 (08:29→21:47)
[2020-04-21 12:00] VITALS: BP 124/75
[2020-04-21 16:00] VITALS: BP 126/63
[2020-04-21 20:00] VITALS: BP_SYST 117; BP_SYST 135; BP_DIAS 75; BP_DIAS 82
[2020-04-21] MEDS: ATORVASTATIN CALCIUM 20MG TABLET PO SCH (21:47)
[2020-04-21] MEDS: FAMOTIDINE 20MG TABLET PO SCH (21:48)
[2020-04-21] MEDS: ENOXAPARIN 100MG/ML SYR SUBCUT SCH (21:49)
[2020-04-21] MEDS: INSULIN GLARGINE UD 100 UNITS/ML SYR SUBCUT SCH (22:11)
[2020-04-22 04:00] VITALS: BP 121/58
[2020-04-22] MEDS: MEXILETINE HCL 150MG CAPSULE PO SCH ×3 (05:57→21:33)
[2020-04-22] MEDS: NITROGLYCERIN OINT 1GM/INCH UDPKT TD SCH ×3 (05:58→21:35)
[2020-04-22] MEDS: HYDRALAZINE HCL 100MG TABLET PO SCH ×3 (05:58→21:33)
[2020-04-22] MEDS: BLOOD SUGAR DIAGNOSTIC STRIP TEST SCH ×4 (05:58→21:20)
[2020-04-22] MEDS: SODIUM CHLORIDE 0.9% INJ 3ML FLUSH IVF SCH ×3 (05:58→21:35)
[2020-04-22] MEDS: INSULIN LISPRO 100 UNITS/ML SUBCUT SCH ×4 (06:03→21:32)
[2020-04-22 08:00] VITALS: BP 111/77
[2020-04-22] MEDS: CARVEDILOL 12.5MG TABLET PO SCH ×2 (09:01→21:35)
[2020-04-22] MEDS: FUROSEMIDE 40MG/4ML VIAL IVP SCH (09:01)
[2020-04-22] MEDS: TAMSULOSIN HCL 0.4MG SR CAPSULE PO SCH (09:01)
[2020-04-22 12:00] VITALS: BP 111/69
[2020-04-22 15:08] LABS: BASOPHILS % 0.6 % (0.0-2.0); EOSINOPHILS % 0.8 % (0.0-5.0); HEMATOCRIT. 35.2 % (42.0-52.0); HEMOGLOBIN. 11.2 g/dL (14.0-18.0); LYMPHOCYTES % 17.3 % (20.0-50.0); MEAN CORPUSCULAR HEMOGLOBIN 25.8 pg (28.0-32.0); MEAN CORPUSCULAR VOLUME 80.7 fL (80.0-94.0); MEAN PLATELET VOLUME 9.5 fl (7.4-10.4); MONOCYTES % 9.1 % (2.0-8.0); NEUTROPHILS % 72.2 % (40.0-76.0); PLATELET 134 x1000/uL (130-400); RED BLOOD CELL COUNT 4.36 mill/uL (4.7-6.1); RED CELL DISTRIBUTION WIDTH 14.8 % (11.6-14.6)
[2020-04-22 15:49] LABS: CHLORIDE 107 mEq/L (98-107)
[2020-04-22 16:00] VITALS: BP 126/63
[2020-04-22 20:00] VITALS: BP 127/81
[2020-04-22] MEDS: INSULIN GLARGINE UD 100 UNITS/ML SYR SUBCUT SCH (21:33)
[2020-04-22] MEDS: ATORVASTATIN CALCIUM 20MG TABLET PO SCH (21:33)
[2020-04-22] MEDS: ENOXAPARIN 100MG/ML SYR SUBCUT SCH (21:34)
[2020-04-22] MEDS: FAMOTIDINE 20MG TABLET PO SCH (21:36)
[2020-04-23] VITALS: BP 109/56
[2020-04-23] MEDS ORDERED: MAGNESIUM 2 G PREMIX 50 ML IV NR
[2020-04-23 04:00] VITALS: BP 103/52
[2020-04-23] MEDS: INSULIN LISPRO 100 UNITS/ML SUBCUT SCH ×4 (06:26→20:49)
[2020-04-23] MEDS: NITROGLYCERIN OINT 1GM/INCH UDPKT TD SCH ×3 (06:26→22:08)
[2020-04-23] MEDS: BLOOD SUGAR DIAGNOSTIC STRIP TEST SCH ×4 (06:26→20:50)
[2020-04-23] MEDS: MEXILETINE HCL 150MG CAPSULE PO SCH ×3 (06:27→22:08)
[2020-04-23] MEDS: HYDRALAZINE HCL 100MG TABLET PO SCH ×3 (06:27→22:09)
[2020-04-23] MEDS: SODIUM CHLORIDE 0.9% INJ 3ML FLUSH IVF SCH ×3 (06:27→20:50)
[2020-04-23 08:00] VITALS: BP 130/61
[2020-04-23] MEDS: TAMSULOSIN HCL 0.4MG SR CAPSULE PO SCH (09:19)
[2020-04-23] MEDS: FUROSEMIDE 40MG/4ML VIAL IVP SCH (09:20)
[2020-04-23] MEDS: CARVEDILOL 12.5MG TABLET PO SCH ×2 (09:20→20:48)
[2020-04-23 12:00] VITALS: BP 111/65
[2020-04-23 16:00] VITALS: BP 144/84
[2020-04-23] MEDS: ENOXAPARIN 100MG/ML SYR SUBCUT SCH (16:24)
[2020-04-23 20:00] VITALS: BP 112/71
[2020-04-23] MEDS: ATORVASTATIN CALCIUM 20MG TABLET PO SCH (20:48)
[2020-04-23] MEDS: FAMOTIDINE 20MG TABLET PO SCH (20:49)
[2020-04-23] MEDS ORDERED: INSULIN GLARGINE UD 100 UNITS/ML SYR SUBCUT SCH (22:00)
[2020-04-24] VITALS: BP 127/69
[2020-04-24] MEDS: ENOXAPARIN 100MG/ML SYR SUBCUT SCH ×2 (00:35→09:27)
[2020-04-24 04:00] VITALS: BP 118/69
[2020-04-24] MEDS: NITROGLYCERIN OINT 1GM/INCH UDPKT TD SCH (06:08)
[2020-04-24] MEDS: HYDRALAZINE HCL 100MG TABLET PO SCH (06:08)
[2020-04-24] MEDS: MEXILETINE HCL 150MG CAPSULE PO SCH (06:08)
[2020-04-24] MEDS: INSULIN LISPRO 100 UNITS/ML SUBCUT SCH (06:08)
[2020-04-24] MEDS: SODIUM CHLORIDE 0.9% INJ 3ML FLUSH IVF SCH (06:08)
[2020-04-24] MEDS: BLOOD SUGAR DIAGNOSTIC STRIP TEST SCH (06:09)
[2020-04-24 08:00] VITALS: BP 108/74
[2020-04-24] MEDS: TAMSULOSIN HCL 0.4MG SR CAPSULE PO SCH (09:27)
[2020-04-24] MEDS: FUROSEMIDE 40MG/4ML VIAL IVP SCH (09:27)
[2020-04-24] MEDS: CARVEDILOL 12.5MG TABLET PO SCH (09:27)
[2020-04-24 13:39] LABS: BASOPHILS % 0.4 % (0.0-2.0); HEMATOCRIT. 33.4 % (42.0-52.0); HEMOGLOBIN. 10.6 g/dL (14.0-18.0); LYMPHOCYTES % 17.5 % (20.0-50.0); MEAN CORPUSCULAR VOLUME 81.7 fL (80.0-94.0); MEAN PLATELET VOLUME 9.5 fl (7.4-10.4); NEUTROPHILS % 72.1 % (40.0-76.0); PLATELET 130 x1000/uL (130-400); RED BLOOD CELL COUNT 4.09 mill/uL (4.7-6.1)
[2020-04-24 14:30] LABS: CHLORIDE 106 mEq/L (98-107)
[2020-04-24 14:39] VITALS: BP 108/74
== END 2020-04-24 17:04 | disposition home or self-care (01) | DRG 637 ==
LOC: ER 10:05 → 5WST 15:39 → EDBEDREQ 15:49 → ENRESERV 23:06
PROVIDERS: ADMIT Internal Medicine; ATTEND Internal Medicine
DX: E11.649 Type 2 diabetes mellitus with hypoglycemia without coma (principal); G93.41 Metabolic encephalopathy; I13.0 Hypertensive heart and chronic kidney disease with heart failure and stage 1 through stage 4 chronic kidney disease, or unspecified chronic kidney disease; I50.22 Chronic systolic (congestive) heart failure; I42.0 Dilated cardiomyopathy; I48.20 Chronic atrial fibrillation, unspecified; I47.2 Ventricular tachycardia; I48.21 Permanent atrial fibrillation; I48.92 Unspecified atrial flutter; E11.22 Type 2 diabetes mellitus with diabetic chronic kidney disease; N18.9 Chronic kidney disease, unspecified; E78.00 Pure hypercholesterolemia, unspecified; E78.5 Hyperlipidemia, unspecified; G89.29 Other chronic pain; J44.9 Chronic obstructive pulmonary disease, unspecified; Z79.01 Long term (current) use of anticoagulants; Z87.891 Personal history of nicotine dependence; Z95.810 Presence of automatic (implantable) cardiac defibrillator; Z79.4 Long term (current) use of insulin; Z79.82 Long term (current) use of aspirin; Z79.899 Other long term (current) drug therapy
CPT/HCPCS: 36415; 71045; 80053; 81003; 82010; 82962; 83036; 83735; 84484; 85025; 93005; 93306; 96374; 97116; 97162; 99291; J1650; J1815; J1940; J3475; J7030

== ENCOUNTER 2021-05-06 18:52 | Emergency (ER) | payer OTHER, MEDICAID ==
[~2021-05-06] VITALS: Ht 177.8 cm; Wt 113.0 kg
[2021-05-06] MEDS ORDERED: ASPIRIN 81MG TABLET PO ONE (19:15)
[2021-05-06 19:48] LABS: BASOPHILS % 0.8 % (0.0-2.0); EOSINOPHILS % 0.7 % (0.0-5.0); HEMATOCRIT. 32.5 % (42.0-52.0); HEMOGLOBIN. 10.6 g/dL (14.0-18.0); LYMPHOCYTES % 11.1 % (20.0-50.0); MEAN CORPUSCULAR VOLUME 83.2 fL (80.0-94.0); MEAN PLATELET VOLUME 10.3 fl (7.4-10.4); MONOCYTES % 4.9 % (2.0-8.0); NEUTROPHILS % 82.5 % (40.0-76.0); PLATELET 105 x1000/uL (130-400); RED BLOOD CELL COUNT 3.91 mill/uL (4.7-6.1)
[2021-05-06 19:52] LABS: CHLORIDE 105 mEq/L (98-107)
[2021-05-06] MEDS ORDERED: ALBUTEROL (0.083%) 2.5MG/3ML NEB HHN STA (21:09)
[2021-05-06] MEDS ORDERED: IPRATROPIUM BROMIDE (0.02%) 0.5MG/2.5ML NEB HHN STA (21:09)
[2021-05-06] MEDS ORDERED: CEFTRIAXONE 1 G PREMIX 50 ML IV ONE (21:15)
[2021-05-06] MEDS ORDERED: AZITHROMYCIN 500MG/250ML 250 ML IV ONE (21:15)
[2021-05-06] MEDS ORDERED: MAGNESIUM 2 G PREMIX 50 ML IV ONE (21:15)
[2021-05-06] MEDS ORDERED: FUROSEMIDE 20MG/2ML VIAL IVP ONE (21:45)
[2021-05-06] MEDS ORDERED: AZITHROMYCIN 500 MG in DEXT 5% WATER 250 ML IV NR (22:30)
[2021-05-07 01:00] VITALS: BP 118/85
== END 2021-05-07 01:00 | disposition short-term general hospital (02) ==
LOC: ER 18:52
DX: J44.1 Chronic obstructive pulmonary disease with (acute) exacerbation (principal); I11.0 Hypertensive heart disease with heart failure; I50.9 Heart failure, unspecified; E78.00 Pure hypercholesterolemia, unspecified; E11.9 Type 2 diabetes mellitus without complications; Z20.822 Contact with and (suspected) exposure to COVID-19; Z95.0 Presence of cardiac pacemaker; Z79.4 Long term (current) use of insulin; Z79.82 Long term (current) use of aspirin
CPT/HCPCS: 36415; 70450; 71045; 80053; 83880; 84484; 85025; 87426; 93005; 94640; 96365; 96367; 96375; 99285; J0456; J0696; J1940; J3475; J7060

== ENCOUNTER 2021-05-12 18:17 | Emergency (ER) | payer OTHER, MEDICAID ==
[~2021-05-12] VITALS: Ht 177.8 cm; Wt 97.5 kg
[2021-05-12] MEDS ORDERED: ASPIRIN 81MG TABLET PO ONE (20:30)
[2021-05-12 21:05] LABS: BASOPHILS % 0.6 % (0.0-2.0); EOSINOPHILS % 1.5 % (0.0-5.0); HEMATOCRIT. 31.5 % (42.0-52.0); HEMOGLOBIN. 10.1 g/dL (14.0-18.0); LYMPHOCYTES % 19.2 % (20.0-50.0); MEAN CORPUSCULAR HEMOGLOBIN 27.1 pg (28.0-32.0); MEAN CORPUSCULAR VOLUME 84.9 fL (80.0-94.0); MEAN PLATELET VOLUME 9.2 fl (7.4-10.4); MONOCYTES % 8.7 % (2.0-8.0); PLATELET 100 x1000/uL (130-400); RED BLOOD CELL COUNT 3.72 mill/uL (4.7-6.1); RED CELL DISTRIBUTION WIDTH 15.8 % (11.6-14.6)
[2021-05-12 21:13] LABS: CHLORIDE 109 mEq/L (98-107)
[2021-05-13 02:00] VITALS: BP 120/82
== END 2021-05-13 03:15 | disposition short-term general hospital (02) ==
LOC: ER 18:17 → CANBEDREQ 05-13 05:08
DX: I11.0 Hypertensive heart disease with heart failure (principal); I50.9 Heart failure, unspecified; E11.9 Type 2 diabetes mellitus without complications; E78.00 Pure hypercholesterolemia, unspecified; Z95.0 Presence of cardiac pacemaker; R06.02 Shortness of breath; I48.91 Unspecified atrial fibrillation; J44.9 Chronic obstructive pulmonary disease, unspecified; Z79.899 Other long term (current) drug therapy; Z20.822 Contact with and (suspected) exposure to COVID-19
CPT/HCPCS: 36415; 71045; 80053; 83880; 84484; 85025; 87426; 93005; 99285